=== PATIENT | male | born 1945 | race Caucasian/White ===

== ENCOUNTER 2018-08-19 09:29 | Inpatient (IN) | payer MEDICARE, BC ==
[2018-08-19 10:09] LABS: Basophils % (A) 1 %; Eosinophils # (A) 0.2 k/uL (0-0.7); Eosinophils % (A) 3 %; HCT 31.9 % (39.0-53.0); HGB 10.3 gm/dL (13.0-17.5); Lymphocytes # (A) 1.6 k/uL (1.0-4.8); Lymphocytes % (A) 21 %; MCH 31.4 pg (25.0-35.0); MCHC 32.1 g/dL (31.0-37.0); MCV 97.7 fL (80.0-100.0); Mean Platelet Volume 7.4; Monocytes # (A) 0.6 k/uL (0-1.0); Monocytes % (A) 7 %; Neutrophils # (A) 5.2 k/uL (1.3-7.7); Neutrophils % (A) 68 %; Platelet Count 263 k/uL (150-450); RBC 3.27 m/uL (4.30-5.90); RDW 14.8 % (11.5-15.5); WBC 7.7 k/uL (3.8-10.6)
[2018-08-19 10:28] LABS: ALT 32 U/L (21-72); AST 29 U/L (17-59); African American GFR (CKD) >90 (>60 ml/min/1.73 sqM); Albumin 3.5 g/dL (3.5-5.0); Alkaline Phosphatase 51 U/L (38-126); Anion Gap 5 mmol/L; Blood Urea Nitrogen 29 mg/dL (9-20); Calcium 9.2 mg/dL (8.4-10.2); Carbon Dioxide 26 mmol/L (22-30); Chloride 110 mmol/L (98-107); Creatine Kinase 216 U/L (55-170); Glucose 108 mg/dL (74-99); Magnesium 1.8 mg/dL (1.6-2.3); Potassium 4.1 mmol/L (3.5-5.1); Sodium 141 mmol/L (137-145); Total Bilirubin 0.6 mg/dL (0.2-1.3); Total Protein 5.5 g/dL (6.3-8.2)
[2018-08-19 10:38] LABS: INR 0.9 (<1.2); Partial Thromboplastin Time 23.8 sec (22.0-30.0); Prothrombin Time 9.9 sec (9.0-12.0)
--- NOTE | 2018-08-19 10:59 | ED ---
GI Bleed HPI - General Chief complaint: GI Bleed Stated complaint: Rectal Bleeding Time Seen by Provider: 08/19/18 09:36 Source: patient, RN notes reviewed Mode of arrival: ambulatory Limitations: no limitations - History of Present Illness Initial comments: (73-year-old male presents with complaints of GI bleeding had several episodes last evening more episodes this morning minimal abdominal pain. He states he has similar episodes several months ago was diagnosed with hemorrhoids. He states he has more blood and this morning was more burgundy colored. No fevers chills nausea vomiting sweats. MD complaint: gross hematochezia - Related Data Home Medications Medication Instructions Recorded Confirmed ALPRAZolam [Xanax] 1 mg PO HS 08/19/18 08/19/18 Ascorbic Acid [Vitamin C] 1,000 mg PO TID 08/19/18 08/19/18 Aspirin EC [Ecotrin Low Dose] 81 mg PO HS 08/19/18 08/19/18 Atorvastatin [Lipitor] 20 mg PO HS 08/19/18 08/19/18 Cyanocobalamin (Vitamin B-12) 1,000 mcg PO DAILY 08/19/18 08/19/18 [Vitamin B-12] Ferrous Sulfate [Feosol] 325 mg PO DAILY 08/19/18 08/19/18 Gabapentin [Neurontin] 100 mg PO HS 08/19/18 08/19/18 Lisinopril 40 mg PO HS 08/19/18 08/19/18 Melatonin 3 mg PO HS 08/19/18 08/19/18 Metoprolol Succinate (ER) [Toprol 50 mg PO DAILY 08/19/18 08/19/18 Xl] Omeprazole [PriLOSEC] 20 mg PO AC-BRKFST 08/19/18 08/19/18 Pioglitazone HCl [Actos] 15 mg PO DAILY 08/19/18 08/19/18 Tiotropium [place] [Spiriva 1 puff INHALATION RT-HS 08/19/18 08/19/18 Respimat] amLODIPine [Norvasc] 5 mg PO HS 08/19/18 08/19/18 glipiZIDE [Glucotrol] 2.5 mg PO AC-BID 08/19/18 08/19/18 metFORMIN HCL 1,000 mg PO BID 08/19/18 08/19/18 Allergies Allergy/AdvReac Type Severity Reaction Status Date / Time No Known Allergies Allergy Verified 08/19/18 09:52 Review of Systems ROS Statement: Those systems with pertinent positive or pertinent negative responses have been documented in the HPI. ROS Other: All systems not noted in ROS Statement are negative. Past Medical History Past Medical History: Diabetes Mellitus, Hypertension History of Any Multi-Drug Resistant Organisms: None Reported Past Surgical History: Coronary Bypass/CABG, Joint Replacement Additional Past Surgical History / Comment(s): left knee replacement Past Psychological History: No Psychological Hx Reported Smoking Status: Never smoker Past Alcohol Use History: None Reported Past Drug Use History: None Reported General Exam - General Exam Comments Initial Comments: This is a well-developed well-nourished awake alert oriented 3 male Limitations: no limitations General appearance: alert, in no apparent distress Head exam: Present: atraumatic, normocephalic, normal inspection Eye exam: Present: normal appearance, PERRL, EOMI. Absent: scleral icterus, conjunctival injection, periorbital swelling ENT exam: Present: normal exam, mucous membranes moist Neck exam: Present: normal inspection. Absent: tenderness, meningismus, lymphadenopathy Respiratory exam: Present: normal lung sounds bilaterally. Absent: respiratory distress, wheezes, rales, rhonchi, stridor Cardiovascular Exam: Present: regular rate, normal rhythm, normal heart sounds. Absent: systolic murmur, diastolic murmur, rubs, gallop, clicks GI/Abdominal exam: Present: soft, normal bowel sounds. Absent: distended, tenderness, guarding, rebound, rigid Rectal exam: Present: normal inspection, heme (+) stool Extremities exam: Present: normal inspection, full ROM, normal capillary refill. Absent: tenderness, pedal edema, joint swelling, calf tenderness Back exam: Present: normal inspection Neurological exam: Present: alert, oriented X3, CN II-XII intact Psychiatric exam: Present: normal affect, normal mood Skin exam: Present: warm, dry, intact, normal color. Absent: rash Course Vital Signs 08/19/18 08/19/18 08/19/18 09:31 09:50 10:34 Temperature 98.1 F Pulse Rate 86 61 79 Respiratory 16 18 18 Rate Blood Pressure 130/64 122/58 120/61 O2 Sat by Pulse 97 97 99 Oximetry Medical Decision Making - Medical Decision Making I did discuss the findings with the patient he will be admitted diagnoses GI bleed GI will be consulted I did discuss case with Dr. Crenshaw - Lab Data Result diagrams: 08/19/18 09:50 08/19/18 09:50 Lab Results 08/19/18 08/19/18 08/19/18 Range/Units 09:50 09:50 09:50 WBC 7.7 (3.8-10.6) k/uL RBC 3.27 L (4.30-5.90) m/uL Hgb 10.3 L (13.0-17.5) gm/dL Hct 31.9 L (39.0-53.0) % MCV 97.7 (80.0-100.0) fL MCH 31.4 (25.0-35.0) pg MCHC 32.1 (31.0-37.0) g/dL RDW 14.8 (11.5-15.5) % Plt Count 263 (150-450) k/uL Neutrophils % 68 % Lymphocytes % 21 % Monocytes % 7 % Eosinophils % 3 % Basophils % 1 % Neutrophils # 5.2 (1.3-7.7) k/uL Lymphocytes # 1.6 (1.0-4.8) k/uL Monocytes # 0.6 (0-1.0) k/uL Eosinophils # 0.2 (0-0.7) k/uL Basophils # 0.0 (0-0.2) k/uL PT 9.9 (9.0-12.0) sec INR 0.9 (<1.2) APTT 23.8 (22.0-30.0) sec Sodium 141 (137-145) mmol/L Potassium 4.1 (3.5-5.1) mmol/L Chloride 110 H (98-107) mmol/L Carbon Dioxide 26 (22-30) mmol/L Anion Gap 5 mmol/L BUN 29 H (9-20) mg/dL Creatinine 0.91 (0.66-1.25) mg/dL Est GFR (CKD-EPI)AfAm >90 (>60 ml/min/1.73 sqM) Est GFR (CKD-EPI)NonAf 84 (>60 ml/min/1.73 sqM) Glucose 108 H (74-99) mg/dL Calcium 9.2 (8.4-10.2) mg/dL Magnesium 1.8 (1.6-2.3) mg/dL Total Bilirubin 0.6 (0.2-1.3) mg/dL AST 29 (17-59) U/L ALT 32 (21-72) U/L Alkaline Phosphatase 51 (38-126) U/L Creatine Kinase 216 H (55-170) U/L Troponin I (0.000-0.034) ng/mL Total Protein 5.5 L (6.3-8.2) g/dL Albumin 3.5 (3.5-5.0) g/dL Stool Occult Blood (Negative) Blood Type Blood Type Confirm Blood Type Recheck Antibody Screen Spec Expiration Date 08/19/18 08/19/18 08/19/18 Range/Units 09:50 09:50 10:40 WBC (3.8-10.6) k/uL RBC (4.30-5.90) m/uL Hgb (13.0-17.5) gm/dL Hct (39.0-53.0) % MCV (80.0-100.0) fL MCH (25.0-35.0) pg MCHC (31.0-37.0) g/dL RDW (11.5-15.5) % Plt Count (150-450) k/uL Neutrophils % % Lymphocytes % % Monocytes % % Eosinophils % % Basophils % % Neutrophils # (1.3-7.7) k/uL Lymphocytes # (1.0-4.8) k/uL Monocytes # (0-1.0) k/uL Eosinophils # (0-0.7) k/uL Basophils # (0-0.2) k/uL PT (9.0-12.0) sec INR (<1.2) APTT (22.0-30.0) sec Sodium (137-145) mmol/L Potassium (3.5-5.1) mmol/L Chloride (98-107) mmol/L Carbon Dioxide (22-30) mmol/L Anion Gap mmol/L BUN (9-20) mg/dL Creatinine (0.66-1.25) mg/dL Est GFR (CKD-EPI)AfAm (>60 ml/min/1.73 sqM) Est GFR (CKD-EPI)NonAf (>60 ml/min/1.73 sqM) Glucose (74-99) mg/dL Calcium (8.4-10.2) mg/dL Magnesium (1.6-2.3) mg/dL Total Bilirubin (0.2-1.3) mg/dL AST (17-59) U/L ALT (21-72) U/L Alkaline Phosphatase (38-126) U/L Creatine Kinase (55-170) U/L Troponin I <0.012 (0.000-0.034) ng/mL Total Protein (6.3-8.2) g/dL Albumin (3.5-5.0) g/dL Stool Occult Blood Positive (Negative) Blood Type A Negative Blood Type Confirm Blood Type Recheck CABO Indicated Antibody Screen NEGATIVE Spec Expiration Date 08/22/2018 - 234908/19/18 Range/Units 11:20 WBC (3.8-10.6) k/uL RBC (4.30-5.90) m/uL Hgb (13.0-17.5) gm/dL Hct (39.0-53.0) % MCV (80.0-100.0) fL MCH (25.0-35.0) pg MCHC (31.0-37.0) g/dL RDW (11.5-15.5) % Plt Count (150-450) k/uL Neutrophils % % Lymphocytes % % Monocytes % % Eosinophils % % Basophils % % Neutrophils # (1.3-7.7) k/uL Lymphocytes # (1.0-4.8) k/uL Monocytes # (0-1.0) k/uL Eosinophils # (0-0.7) k/uL Basophils # (0-0.2) k/uL PT (9.0-12.0) sec INR (<1.2) APTT (22.0-30.0) sec Sodium (137-145) mmol/L Potassium (3.5-5.1) mmol/L Chloride (98-107) mmol/L Carbon Dioxide (22-30) mmol/L Anion Gap mmol/L BUN (9-20) mg/dL Creatinine (0.66-1.25) mg/dL Est GFR (CKD-EPI)AfAm (>60 ml/min/1.73 sqM) Est GFR (CKD-EPI)NonAf (>60 ml/min/1.73 sqM) Glucose (74-99) mg/dL Calcium (8.4-10.2) mg/dL Magnesium (1.6-2.3) mg/dL Total Bilirubin (0.2-1.3) mg/dL AST (17-59) U/L ALT (21-72) U/L Alkaline Phosphatase (38-126) U/L Creatine Kinase (55-170) U/L Troponin I (0.000-0.034) ng/mL Total Protein (6.3-8.2) g/dL Albumin (3.5-5.0) g/dL Stool Occult Blood (Negative) Blood Type Blood Type Confirm A Negative Blood Type Recheck Antibody Screen Spec Expiration Date - EKG Data -: EKG Interpreted by Me EKG shows normal: sinus rhythm (Sinus rhythm borderline first-degree block incomplete left low back block nonspecific ST configuration prolonged QT ventricular rate 82 QRS 106 QT since QTC 408/476) - Radiology Data Radiology results: report reviewed (Review the imaging shows no definite acute findings or some question was evidence of ileus versus enteritis), image reviewed Disposition Clinical Impression: Hematochezia, GI bleed, Anemia Disposition: ADMITTED IP TO THIS [facility] Condition: Fair Referrals: None,Stated [Primary Care Provider] - 1-2 days
--- NOTE | 2018-08-19 12:22 | XR ---
EXAMINATION TYPE: XR abdomen 2V DATE OF EXAM: 08/19/2018 CLINICAL DATA: 73-year-old male rectal bleeding, pain, PHH COMPARISON: None FINDINGS: Mildly enlarged. Median sternotomy wires. Lung bases clear. No evidence for free intraperitoneal air. Degenerated dextro convex scoliosis lumbar spine. Scattered air throughout central small bowel loops. One loop is borderline to mildly distended at 3.1 cm in the left upper quadrant. Mild overall stool burden. No differential air-fluid levels. Vascular calcifications in the pelvis. IMPRESSION: 1. No evidence of bowel obstruction or free intraperitoneal air. 2. Borderline to mildly distended small bowel loop on the left side of the abdomen could represent a regional ileus or enteritis.
[2018-08-19] MEDS ORDERED: ONDANSETRON 4 MG/2 ML VIAL IVP PRN (13:18)
[2018-08-19] MEDS ORDERED: NALOXONE 0.4 MG/ML 1 ML VIAL IV PRN (13:18)
[2018-08-19 13:24] LABS: Glucose,Whole Blood 94 mg/dL (75-99)
[2018-08-19] MEDS: SODIUM CHLORIDE 0.9% 1,000 ML IV SCH (13:46)
[2018-08-19 16:08] LABS: HCT 28.1 % (39.0-53.0); HGB 8.9 gm/dL (13.0-17.5); MCH 31.9 pg (25.0-35.0); MCHC 31.7 g/dL (31.0-37.0); MCV 100.7 fL (80.0-100.0); Macrocytosis Slight; Platelet Count 233 k/uL (150-450); RDW 14.7 % (11.5-15.5); WBC 6.6 k/uL (3.8-10.6)
[2018-08-19] MEDS ORDERED: HYDROcodone/APAP 5-325MG 1 EACH TAB PO PRN (17:28)
[2018-08-19] MEDS ORDERED: ACETAMINOPHEN TAB 325 MG TAB PO PRN (17:28)
--- NOTE | 2018-08-19 17:49 | P.HPIM ---
History of Present Illness H&P Date: 08/19/18 Chief Complaint: GI bleed 73-year-old male with PMH of diabetes mellitus, hypertension, coronary artery disease status post AV valve replacement CABG presents to the ED for he matochezia. Patient reports about 6 episode of bright red blood per rectum since yesterday. Symptoms persisted, prompting the patient to come to the ED. Patient reports a colonoscopy a few years back that was within normal limits. He denies any headache, lower extremity edema, nausea, vomiting, chest pain, shortness of breath, palpitations, changes in urination, dizziness, numbness/weakness/tingling of the extremities. He denies any abdominal pain. In the ED, vital signs are stable. CBC showed a hemoglobin of 10.3 which trended down to 8.9. CMP showed a BUN of 29. Patient is admitted for lower GI bleed, GI is consulted. Review of Systems Pertinent positives and negatives as discussed in HPI, a complete review of systems was performed and all other systems are negative. Past Medical History Past Medical History: Diabetes Mellitus, GERD/Reflux, Hyperlipidemia, Hypertension, Pneumonia Additional Past Medical History / Comment(s): Bleeding hemorrhoids recently, pt taken off coumadin 6 weeks ago and started on aspirin, NIDDM type II, bilateral leg cramps at HS, anemia, schrapnel in his back. History of Any Multi-Drug Resistant Organisms: None Reported Past Surgical History: Coronary Bypass/CABG, Heart Catheterization, Joint Replacement Additional Past Surgical History / Comment(s): 2012 CABG with aortic valve replaced, left total knee replacement, colonoscopy Past Anesthesia/Blood Transfusion Reactions: No Reported Reaction Smoking Status: Former smoker - Past Family History Father Family Medical History: Myocardial Infarction (PR) Additional Family Medical History / Comment(s): Father of a massive PR at the age of 46yrs. Mother Family Medical History: Cancer Additional Family Medical History / Comment(s): Mother had lung cancer. She was a smoker. She at the age of 90yrs. Medications and Allergies Home Medications Medication Instructions Recorded Confirmed Type ALPRAZolam [Xanax] 1 mg PO HS 08/19/18 08/19/18 History Ascorbic Acid [Vitamin C] 1,000 mg PO TID 08/19/18 08/19/18 History Aspirin EC [Ecotrin Low Dose] 81 mg PO HS 08/19/18 08/19/18 History Atorvastatin [Lipitor] 20 mg PO HS 08/19/18 08/19/18 History Cyanocobalamin (Vitamin B-12) 1,000 mcg PO DAILY 08/19/18 08/19/18 History [Vitamin B-12] Ferrous Sulfate [Feosol] 325 mg PO DAILY 08/19/18 08/19/18 History Gabapentin [Neurontin] 100 mg PO HS 08/19/18 08/19/18 History Lisinopril 40 mg PO HS 08/19/18 08/19/18 History Melatonin 3 mg PO HS 08/19/18 08/19/18 History Metoprolol Succinate (ER) [Toprol 50 mg PO DAILY 08/19/18 08/19/18 History Xl] Omeprazole [PriLOSEC] 20 mg PO AC-BRKFST 08/19/18 08/19/18 History Pioglitazone HCl [Actos] 15 mg PO DAILY 08/19/18 08/19/18 History Tiotropium [place] [Spiriva 1 puff INHALATION RT-HS 08/19/18 08/19/18 History Respimat] amLODIPine [Norvasc] 5 mg PO HS 08/19/18 08/19/18 History glipiZIDE [Glucotrol] 2.5 mg PO AC-BID 08/19/18 08/19/18 History metFORMIN HCL 1,000 mg PO BID 08/19/18 08/19/18 History Allergies Allergy/AdvReac Type Severity Reaction Status Date / Time No Known Allergies Allergy Verified 08/19/18 09:52 Physical Exam Vitals: Vital Signs Temp Pulse Pulse Resp BP BP Pulse Ox 08/19/18 16:52 96.7 F L 70 16 151/69 98 08/19/18 14:50 98.2 F 65 16 114/66 98 08/19/18 13:25 66 16 116/56 95 08/19/18 10:34 79 18 120/61 99 08/19/18 09:50 61 18 122/58 97 08/19/18 09:31 98.1 F 86 16 130/64 97 Intake and Output 08/19/18 08/19/18 08/19/18 06:59 14:59 22:59 Other: # Bowel Movements 1 Weight 77.111 kg General: [non toxic], [no distress], [appears at stated age] Derm: [warm], [dry] Head: [atraumatic], [normocephalic], [symmetric] Eyes: [EOMI], [no lid lag], [anicteric sclera] Mouth: [no lip lesion], [mucus membranes moist] Cardiovascular: [S1S2 reg], [no murmur], [positive posterior tibial pulse bilateral], Lungs: [CTA bilateral], [no rhonchi, no rales] , [no accessory muscle use] Abdominal: [soft], [ nontender to palpation], [no guarding], [no appreciable organomegaly] Ext: [no gross muscle atrophy], [no edema], [no contractures] Neuro: [ CN II-XI grossly intact], [no focal neuro deficits] Psych: [Alert], [oriented], [appropriate affect] Results CBC & Chem 7: 08/19/18 15:56 08/19/18 09:50 Labs: Abnormal Lab Results - Last 24 Hours (Table) 08/19/18 08/19/18 08/19/18 Range/Units 09:50 09:50 15:56 RBC 3.27 L 2.80 L (4.30-5.90) m/uL Hgb 10.3 L 8.9 L (13.0-17.5) gm/dL Hct 31.9 L 28.1 L (39.0-53.0) % MCV 100.7 H (80.0-100.0) fL Chloride 110 H (98-107) mmol/L BUN 29 H (9-20) mg/dL Glucose 108 H (74-99) mg/dL Creatine Kinase 216 H (55-170) U/L Total Protein 5.5 L (6.3-8.2) g/dL Thrombosis Risk Factor Assmnt - Choose All That Apply Any of the Below Risk Factors Present?: Yes Other Risk Factors: Yes Each Risk Factor Represents 2 Points: Age 61-74 years Other congenital or acquired thrombophilia - If yes, enter type in comment: No Thrombosis Risk Factor Assessment Total Risk Factor Score: 2 Thrombosis Risk Factor Assessment Level: Low Risk Assessment and Plan Assessment: Assessment and Plan Lower GI bleed likely secondary to hemorrhoids or diverticular bleed given presentation Diabetes mellitus Hypertension CAD post CABG Hemoglobin from 10.3-8.9. Stool for occult blood positive. Plans: Protonix 40 g IV twice a day. Continue normal saline 80 mL per hour. Zofran as needed for nausea and vomiting. We'll consult GI for possible colonoscopy. Follow CBC in 9 PM. [id number] glucose 94. Plans: Insulin sliding scale. Regular Accu-Cheks. Hypoglycemic precautions. BP 151/69. Plans: Continue amlodipine, lisinopril and metoprolol. Monitor vitals, adjust medications as necessary. Stable. Plans: Continue Lipitor. Hold aspirin until okay with GI. DVT prophylaxis: [SCD boots] Discussed with: [Patient] Anticipated discharge: [1-2 days] Anticipated discharge place: [Home] A total of [45] minutes was spent on the care of this complex patient more than 50% of the time was spent in counseling and care coordination.
[2018-08-19 18:23] LABS: Glucose,Whole Blood 165 mg/dL (75-99)
[2018-08-19] MEDS: INSULIN ASPART (NovoLOG) 100 UNIT/ML VIAL SQ SCH ×2 (18:30→21:27)
[2018-08-19] MEDS: amLODIPine 5 MG TAB PO SCH (20:16)
[2018-08-19 20:58] LABS: Glucose,Whole Blood 120 mg/dL (75-99)
[2018-08-19] MEDS: LISINOPRIL 20 MG TAB PO SCH (21:27)
[2018-08-19] MEDS: ATORVASTATIN 20 MG TAB PO SCH (21:27)
[2018-08-19] MEDS: MELATONIN 3 MG TABLET PO SCH (21:27)
[2018-08-19] MEDS: GABAPENTIN 100 MG CAP PO SCH (21:27)
[2018-08-19] MEDS: ALPRAZolam 1 MG TAB PO SCH (21:27)
[2018-08-19] MEDS: PANTOPRAZOLE 40 MG/10 ML VIAL IV SCH (21:28)
[2018-08-19 22:10] LABS: HCT 29.8 % (39.0-53.0); HGB 9.5 gm/dL (13.0-17.5); Hypochromasia Slight; MCH 31.9 pg (25.0-35.0); MCHC 31.8 g/dL (31.0-37.0); MCV 100.3 fL (80.0-100.0); Macrocytosis Slight; Mean Platelet Volume 7.7; Platelet Count 261 k/uL (150-450); RBC 2.97 m/uL (4.30-5.90); RDW 14.5 % (11.5-15.5)
[2018-08-20] MEDS: SODIUM CHLORIDE 0.9% 1,000 ML IV SCH ×2 (02:35→16:42)
[2018-08-20 07:07] LABS: Glucose,Whole Blood 118 mg/dL (75-99)
[2018-08-20] MEDS: INSULIN ASPART (NovoLOG) 100 UNIT/ML VIAL SQ SCH ×4 (08:03→22:10)
[2018-08-20] MEDS: PANTOPRAZOLE 40 MG/10 ML VIAL IV SCH ×2 (08:38→19:47)
[2018-08-20] MEDS: FERROUS SULFATE 325 MG TAB PO SCH (08:38)
[2018-08-20] MEDS: METOPROLOL SUCCINATE (ER) 50 MG TAB.ER.24H PO SCH (08:38)
[2018-08-20 09:15] LABS: HCT 27.4 % (39.0-53.0); HGB 8.8 gm/dL (13.0-17.5); Hypochromasia Slight; MCH 32.5 pg (25.0-35.0); MCHC 32.2 g/dL (31.0-37.0); MCV 100.9 fL (80.0-100.0); Macrocytosis Slight; Mean Platelet Volume 7.2; Platelet Count 257 k/uL (150-450); RBC 2.71 m/uL (4.30-5.90); RDW 14.6 % (11.5-15.5); WBC 6.6 k/uL (3.8-10.6)
--- NOTE | 2018-08-20 10:10 | P.PN ---
Subjective Progress Note Date: 08/20/18 Principal diagnosis: lower GI bleed Patient was seen and examined. No acute events overnight. Patient reports overnight bowel movements with blood. He denies any chest pain, shortness of breath or palpitations. No dizziness. No nausea or vomiting. No abdominal pain. States that he is frustrated, wanting to sign AMA, frustrated that GI has not seen him yet. Objective - Vital Signs Vital signs: Vital Signs Temp 97.9 F 08/20/18 06:34 Pulse 68 08/20/18 06:34 Resp 16 08/20/18 06:34 BP 110/61 08/20/18 06:34 Pulse Ox 98 08/20/18 06:34 Intake & Output 08/19/18 08/20/18 08/20/18 18:59 06:59 18:59 Intake Total 600 590 Balance 600 590 Weight 77.111 kg Intake: Oral 600 590 Other: # Voids 0 # Bowel Movements 1 0 # Emeses 0 - Exam General: [non toxic], [no distress], [appears at stated age] Derm: [warm], [dry] Head: [atraumatic], [normocephalic], [symmetric] Eyes: [EOMI], [no lid lag], [anicteric sclera] Mouth: [no lip lesion], [mucus membranes moist] Cardiovascular: [S1S2 reg], [no murmur], [positive posterior tibial pulse bilateral], Lungs: [CTA bilateral], [no rhonchi, no rales] , [no accessory muscle use] Abdominal: [soft], [ nontender to palpation], [no guarding], [no appreciable organomegaly] Ext: [no gross muscle atrophy], [no edema], [no contractures] Neuro: [no focal neuro deficits] Psych: [Alert], [oriented], [appropriate affect] - Labs CBC & Chem 7: 08/20/18 08:32 08/19/18 09:50 Labs: Abnormal Lab Results - Last 24 Hours (Table) 08/19/18 08/19/18 08/19/18 Range/Units 09:50 09:50 15:56 RBC 3.27 L 2.80 L (4.30-5.90) m/uL Hgb 10.3 L 8.9 L (13.0-17.5) gm/dL Hct 31.9 L 28.1 L (39.0-53.0) % MCV 100.7 H (80.0-100.0) fL Chloride 110 H (98-107) mmol/L BUN 29 H (9-20) mg/dL Glucose 108 H (74-99) mg/dL POC Glucose (mg/dL) (75-99) mg/dL Creatine Kinase 216 H (55-170) U/L Total Protein 5.5 L (6.3-8.2) g/dL 08/19/18 08/19/18 08/19/18 Range/Units 18:20 20:52 22:00 RBC 2.97 L (4.30-5.90) m/uL Hgb 9.5 L (13.0-17.5) gm/dL Hct 29.8 L (39.0-53.0) % MCV 100.3 H (80.0-100.0) fL Chloride (98-107) mmol/L BUN (9-20) mg/dL Glucose (74-99) mg/dL POC Glucose (mg/dL) 165 H 120 H (75-99) mg/dL Creatine Kinase (55-170) U/L Total Protein (6.3-8.2) g/dL 08/20/18 08/20/18 Range/Units 06:58 08:32 RBC 2.71 L (4.30-5.90) m/uL Hgb 8.8 L (13.0-17.5) gm/dL Hct 27.4 L (39.0-53.0) % MCV 100.9 H (80.0-100.0) fL Chloride (98-107) mmol/L BUN (9-20) mg/dL Glucose (74-99) mg/dL POC Glucose (mg/dL) 118 H (75-99) mg/dL Creatine Kinase (55-170) U/L Total Protein (6.3-8.2) g/dL Assessment and Plan Assessment: Assessment and Plan Lower GI bleed likely secondary to hemorrhoids or diverticular bleed given presentation Diabetes mellitus Hypertension CAD post CABG Hemoglobin from 10.3-8.9-9.5-8.8. Stool for occult blood positive. Plans: Protonix 40 g IV twice a day. Continue normal saline 80 mL per hour. Zofran as needed for nausea and vomiting. We'll consult GI for possible colonoscopy. [id number] glucose 118. Plans: Insulin sliding scale. Regular Accu-Cheks. Hypoglycemic precautions. BP 110/61. Plans: Continue amlodipine, lisinopril and metoprolol. Monitor vitals, adjust medications as necessary. Stable. Plans: Continue Lipitor. Hold aspirin until okay with GI. Pending GI evaluation. Monitor H&H. Risk of AMA.
--- NOTE | 2018-08-20 11:36 | P.CONS ---
History of Present Illness - Reason for Consult Consult date: 08/20/18 Hematochezia Requesting physician: Shiv Crenshaw - Chief Complaint Hematochezia - History of Present Illness 73-year-old gentleman resident [place] with a history of colonic diverticulosis, diabetes mellitus, hypertension, CAD AVR, CABG presents with painless gross bloody bowel movements 2 days. Denies hematemesis melena fever chills or weight loss. Last screening colonoscopy 3 years ago to his memory was unremarkable. Previous colonoscopies in the past have mention colonic diverticular disease. 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 Flexible sigmoidoscopy was performed in the GI office 2 months ago and was told his bleeding was from a hemorrhoid with recommendations for colonoscopy in 3 years. Denies NSAIDs excessive aspirin or alcohol. Admission hemoglobin 10.3 presently 8.8. MCV 97. Platelet 263. INR 0.9. FOBT positive. BUN 29. Creatinine 0.9. Abdominal x-ray no evidence of bowel obstruction or free air. He is still passing dark burgundy movements with clots. No history of peptic ulcer disease. No recent EGD. Review of Systems Constitutional: Denies fever, chills, sweats, weight gain, or loss. HEENT: Negative for migraines, blurred vision or loss, earaches, drainage, tinnitus, oral mucosal lesions, dysphagia, or odynophagia. Cardiac: Negative for chest pain, arrhythmias, or palpitation. Respiratory: Negative for shortness of breath, hemoptysis, cough, or sputum production. Gastrointestinal: See HPI for pertinent findings. Genitourinary: Negative for hematuria, urgency, frequency, polyuria, dysuria, or penile discharge. Musculoskeletal: Negative for muscle aches, swelling, arthritis, and arthralgias. Neurologic: Negative for stroke or TIA. Endocrine: Negative for thyroid problems. Skin: Negative for rash or itching. Psychiatric: Negative history for depression and anxiety Past Medical History Past Medical History: Diabetes Mellitus, GERD/Reflux, Hyperlipidemia, Hypertension, Pneumonia Additional Past Medical History / Comment(s): Bleeding hemorrhoids recently, pt taken off coumadin 6 weeks ago and started on aspirin, NIDDM type II, bilateral leg cramps at HS, anemia, schrapnel in his back. History of Any Multi-Drug Resistant Organisms: None Reported Past Surgical History: Coronary Bypass/CABG, Heart Catheterization, Joint Replacement Additional Past Surgical History / Comment(s): 2012 CABG with aortic valve replaced, left total knee replacement, colonoscopy Past Anesthesia/Blood Transfusion Reactions: No Reported Reaction Smoking Status: Former smoker - Past Family History Father Family Medical History: Myocardial Infarction ([place]) Additional Family Medical History / Comment(s): Father of a massive [place] at the age of 46yrs. Mother Family Medical History: Cancer Additional Family Medical History / Comment(s): Mother had lung cancer. She was a smoker. She at the age of 90yrs. Medications and Allergies Home Medications Medication Instructions Recorded Confirmed Type ALPRAZolam [Xanax] 1 mg PO HS 08/19/18 08/19/18 History Ascorbic Acid [Vitamin C] 1,000 mg PO TID 08/19/18 08/19/18 History Aspirin EC [Ecotrin Low Dose] 81 mg PO HS 08/19/18 08/19/18 History Atorvastatin [Lipitor] 20 mg PO HS 08/19/18 08/19/18 History Cyanocobalamin (Vitamin B-12) 1,000 mcg PO DAILY 08/19/18 08/19/18 History [Vitamin B-12] Ferrous Sulfate [Feosol] 325 mg PO DAILY 08/19/18 08/19/18 History Gabapentin [Neurontin] 100 mg PO HS 08/19/18 08/19/18 History Lisinopril 40 mg PO HS 08/19/18 08/19/18 History Melatonin 3 mg PO HS 08/19/18 08/19/18 History Metoprolol Succinate (ER) [Toprol 50 mg PO DAILY 08/19/18 08/19/18 History Xl] Omeprazole [PriLOSEC] 20 mg PO AC-BRKFST 08/19/18 08/19/18 History Pioglitazone HCl [Actos] 15 mg PO DAILY 08/19/18 08/19/18 History Tiotropium [place] [Spiriva 1 puff INHALATION RT-HS 08/19/18 08/19/18 History Respimat] amLODIPine [Norvasc] 5 mg PO HS 08/19/18 08/19/18 History glipiZIDE [Glucotrol] 2.5 mg PO AC-BID 08/19/18 08/19/18 History metFORMIN HCL 1,000 mg PO BID 08/19/18 08/19/18 History Allergies Allergy/AdvReac Type Severity Reaction Status Date / Time No Known Allergies Allergy Verified 08/19/18 09:52 Physical Exam Vitals: Vital Signs Temp Pulse Pulse Resp BP BP Pulse Ox 08/20/18 06:34 97.9 F 68 16 110/61 98 08/20/18 00:00 18 08/19/18 21:00 98.0 F 75 18 132/68 96 08/19/18 16:52 96.7 F L 70 16 151/69 98 08/19/18 14:50 98.2 F 65 16 114/66 98 08/19/18 13:25 66 16 116/56 95 Intake and Output 08/19/18 08/20/18 08/20/18 22:59 06:59 14:59 Intake Total 400 200 590 Balance 400 200 590 Intake: Oral 400 200 590 Other: # Voids 2 0 # Bowel Movements 2 0 1 # Emeses 0 General appearance: The patient is alert, oriented, in no acute distress. HET: Head is normocephalic and atraumatic. Pupils are equal and reactive. Oropharynx is clear without lesions. Neck: Supple without lymphadenopathy. Trachea midline. Heart: S1 S2. Regular rate and rhythm. Lungs: No crackles or wheezes are heard. Abdomen: Soft, nontender, nondistended with bowel sounds. No peritoneal signs. No palpable organomegaly or masses. Extremities: Normal skin color and turgor. No cyanosis, rash, ulceration, clubbing, or edema. Radial and pedal pulses are 2/4 bilaterally. Neurological: No focal deficits. Strength and sensation are grossly intact. Results CBC & Chem 7: 08/20/18 08:32 08/19/18 09:50 Labs: Abnormal Lab Results - Last 24 Hours (Table) 08/19/18 08/19/18 08/19/18 Range/Units 15:56 18:20 20:52 RBC 2.80 L (4.30-5.90) m/uL Hgb 8.9 L (13.0-17.5) gm/dL Hct 28.1 L (39.0-53.0) % MCV 100.7 H (80.0-100.0) fL POC Glucose (mg/dL) 165 H 120 H (75-99) mg/dL 08/19/18 08/20/18 08/20/18 Range/Units 22:00 06:58 08:32 RBC 2.97 L 2.71 L (4.30-5.90) m/uL Hgb 9.5 L 8.8 L (13.0-17.5) gm/dL Hct 29.8 L 27.4 L (39.0-53.0) % MCV 100.3 H 100.9 H (80.0-100.0) fL POC Glucose (mg/dL) 118 H (75-99) mg/dL Abdominal x-ray: report reviewed (Dr. Liu) Assessment and Plan (1) GI bleed Narrative/Plan: 73-year-old male admitted with painless gross hematochezia 2 days with a history of colonic diverticulosis. Suspect acute colonic diverticular bleed however underlying small bowel pathology possible upper GI pathology cannot be entirely excluded with mild elevation of BUN. Recent flexible sigmoidoscopy 2 months ago in [place] reported hemorrhoids and previous colonoscopies in the past reported colonic diverticulosis. Current Visit: Yes Status: Acute Code(s): K92.2 - GASTROINTESTINAL HEMORRHAGE, UNSPECIFIED SNOMED Code(s): 63966678 (2) Acute blood loss anemia Current Visit: Yes Status: Acute Code(s): D62 - ACUTE POSTHEMORRHAGIC ANEMIA SNOMED Code(s): 434583686 (3) Hematochezia Current Visit: Yes Status: Acute Code(s): K92.1 - MELENA SNOMED Code(s): 291174240 Plan: 1. Nothing by mouth. CBC every 6 hours. Protonix 40 mg daily. We'll proceed with EGD evaluation this afternoon to confidently rule out peptic ulcer disease. Patient may require further investigative studies if bleeding continues. Inpatient colonoscopy not planned at this time. If rectal bleeding does not improve and accelerates recommend a tagged RBC scan and surgical consult. 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 The patient has indicated understanding and acceptance of the risks and procedures discussed. Thank you for this kind referral and the opportunity to participate in the care of your patient. This consultation was discussed with Dr. Liu. The impression and plan of care have been directed as dictated.
[2018-08-20 12:10] LABS: Glucose,Whole Blood 241 mg/dL (75-99)
[2018-08-20 15:04] LABS: Basophils % (A) 0 %; Eosinophils # (A) 0.1 k/uL (0-0.7); Eosinophils % (A) 2 %; HCT 24.3 % (39.0-53.0); HGB 7.6 gm/dL (13.0-17.5); Lymphocytes # (A) 1.2 k/uL (1.0-4.8); Lymphocytes % (A) 26 %; MCHC 31.3 g/dL (31.0-37.0); Mean Platelet Volume 7.9; Monocytes # (A) 0.3 k/uL (0-1.0); Monocytes % (A) 8 %; Neutrophils # (A) 2.8 k/uL (1.3-7.7); Neutrophils % (A) 62 %; Platelet Count 205 k/uL (150-450); RBC 2.45 m/uL (4.30-5.90); RDW 14.8 % (11.5-15.5); WBC 4.5 k/uL (3.8-10.6)
[2018-08-20] MEDS ORDERED: IV FLUID CONTINUATION 1,000 ML IV ONE (15:50)
[2018-08-20] MEDS ORDERED: LIDOCAINE 1% INJ 10MG/ML (20 ML MDV) ONE (16:04)
[2018-08-20] MEDS ORDERED: PROPOFOL 10 MG/ML 20 ML VIAL IV ONE (16:04)
--- NOTE | 2018-08-20 16:39 | P.PCN ---
Date of Procedure: 08/20/18 Procedure(s) Performed: Procedure: Esophagogastroduodenoscopy and biopsy. Preoperative diagnosis: GI bleeding and anemia. Postoperative diagnosis: 1. Small sliding hiatal hernia with no obvious esophagitis or complicated reflux disease. 2. Mild antral gastritis but no ulcers, gastric outlet obstruction or bleeding. 3. Biopsies obtained from the antrum to rule out H. pylori infection. 4. No pyloric channel ulcer duodenal bulb or other abnormalities or bleeding. Preparation and sedation: Was provided by anesthesia. Brief clinical history: The patient is a 73-year-old male resident of [place] with a history of colonic diverticulosis, diabetes mellitus, hypertension, CAD AVR, CABG who presents with painless gross bloody bowel movements 2 days. Denies hematemesis, melena, fever, chills or weight loss. Last screening colonoscopy 3 years ago was unremarkable. Previous colonoscopies in the past have mention colonic diverticular disease. 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 Flexible sigmoidoscopy was performed in the GI office 2 months ago and was told his bleeding was from a hemorrhoid with recommendations for colonoscopy in 3 years. Denies NSAIDs excessive aspirin or alcohol. Admission hemoglobin 10.3 presently 8.8. MCV 97. Platelet 263. INR 0.9. FOBT positive. BUN 29. Creatinine 0.9. Abdominal x-ray no evidence of bowel obstruction or free air. He is still passing dark burgundy movements with clots. No history of peptic ulcer disease. No recent EGD. Other details are summarized in the history and physical and dictated consultations and progress notes. This evaluation is to rule out an upper GI source of bleeding. Procedure: With the patient on his left lateral decubitus position and after informed consent and adequate sedation, I passed the Olympus-GIF H190 video upper endoscope through the cricopharyngeus down the esophagus. GE junction was around 42-43 cm from the incisors and there was a small sliding hiatal hernia but no obvious esophagitis or complicated reflux disease. The endoscope was then passed into the stomach which was insufflated with air and inspected in detail including the retroflex view in the cardia. There was some mottling and erythema in the antrum and minimal friability but no ulcers or bleeding. All secretions in the stomach where bilious in color. Pyloric channel, duodenal bulb, post bulbar area and descending duodenum appeared within normal limits. I obtained biopsies from the antrum then the endoscope was withdrawn. The patient tolerated the procedure well. Plan: The patient was reassured. Will allow diet and monitor his bleeding and make further plans based on his course.
[2018-08-20 17:20] LABS: Glucose,Whole Blood 155 mg/dL (75-99)
[2018-08-20] MEDS: amLODIPine 5 MG TAB PO SCH (19:46)
[2018-08-20 20:48] LABS: Glucose,Whole Blood 206 mg/dL (75-99)
[2018-08-20 21:17] LABS: Basophils % (A) 1 %; Eosinophils # (A) 0.2 k/uL (0-0.7); Eosinophils % (A) 2 %; HCT 25.9 % (39.0-53.0); HGB 8.2 gm/dL (13.0-17.5); Hypochromasia Slight; Lymphocytes % (A) 33 %; MCH 31.9 pg (25.0-35.0); MCHC 31.6 g/dL (31.0-37.0); MCV 100.7 fL (80.0-100.0); Macrocytosis Slight; Mean Platelet Volume 7.2; Monocytes # (A) 0.6 k/uL (0-1.0); Monocytes % (A) 9 %; Neutrophils # (A) 3.2 k/uL (1.3-7.7); Neutrophils % (A) 53 %; Platelet Count 237 k/uL (150-450); RBC 2.57 m/uL (4.30-5.90); RDW 14.7 % (11.5-15.5); WBC 6.1 k/uL (3.8-10.6)
[2018-08-20] MEDS: LISINOPRIL 20 MG TAB PO SCH (21:58)
[2018-08-20] MEDS: MELATONIN 3 MG TABLET PO SCH (21:59)
[2018-08-20] MEDS: ATORVASTATIN 20 MG TAB PO SCH (21:59)
[2018-08-20] MEDS: ALPRAZolam 1 MG TAB PO SCH (21:59)
[2018-08-20] MEDS: GABAPENTIN 100 MG CAP PO SCH (21:59)
[2018-08-21] MEDS: SODIUM CHLORIDE 0.9% 1,000 ML IV SCH ×2 (04:24→17:07)
[2018-08-21 07:14] LABS: Glucose,Whole Blood 128 mg/dL (75-99)
[2018-08-21] MEDS: FERROUS SULFATE 325 MG TAB PO SCH (07:34)
[2018-08-21] MEDS: METOPROLOL SUCCINATE (ER) 50 MG TAB.ER.24H PO SCH (07:34)
[2018-08-21] MEDS: PANTOPRAZOLE 40 MG/10 ML VIAL IV SCH ×2 (07:34→20:26)
[2018-08-21] MEDS: INSULIN ASPART (NovoLOG) 100 UNIT/ML VIAL SQ SCH ×4 (07:35→20:49)
[2018-08-21 08:03] LABS: Basophils % (A) 0 %; Eosinophils # (A) 0.2 k/uL (0-0.7); Eosinophils % (A) 3 %; HCT 22.1 % (39.0-53.0); Lymphocytes # (A) 1.5 k/uL (1.0-4.8); Lymphocytes % (A) 27 %; MCH 31.5 pg (25.0-35.0); MCHC 31.7 g/dL (31.0-37.0); MCV 99.3 fL (80.0-100.0); Mean Platelet Volume 7.2; Monocytes # (A) 0.4 k/uL (0-1.0); Monocytes % (A) 7 %; Neutrophils # (A) 3.3 k/uL (1.3-7.7); Neutrophils % (A) 60 %; Platelet Count 218 k/uL (150-450); RBC 2.22 m/uL (4.30-5.90); RDW 14.3 % (11.5-15.5); WBC 5.4 k/uL (3.8-10.6)
--- NOTE | 2018-08-21 10:43 | P.PN ---
Subjective Progress Note Date: 08/21/18 Principal diagnosis: bright red blood per rectum patient was seen and examined. No acute events overnight. EGD performed yesterday with no source of bleeding identified. Patient with bowel movement this morning that was maroon colored. Hemoglobin is 7, will transfuse 1 unit PRBC. Complains of some dizziness with standing. Denies any chest pain or palpitations. Objective - Vital Signs Vital signs: Vital Signs Temp 97.7 F 08/21/18 09:00 Pulse 78 08/21/18 09:00 Resp 16 08/21/18 09:00 BP 118/54 08/21/18 09:00 Pulse Ox 98 08/21/18 09:00 Intake & Output 08/20/18 08/21/18 08/21/18 18:59 06:59 18:59 Intake Total 1280 900 Balance 1280 900 Intake: IV 100 Oral 1180 900 Other: # Voids 1 1 # Bowel Movements 1 1 - Exam General: [non toxic], [no distress], [appears at stated age] Derm: [warm], [dry] Head: [atraumatic], [normocephalic], [symmetric] Eyes: [EOMI], [no lid lag], [anicteric sclera] Mouth: [no lip lesion], [mucus membranes moist] Cardiovascular: [S1S2 reg], [no murmur], [positive DP pulse bilateral], Lungs: [CTA bilateral], [no rhonchi, no rales] , [no accessory muscle use] Abdominal: [soft], [ nontender to palpation], [no guarding], [no appreciable organomegaly] Ext: [no gross muscle atrophy], [no edema], [no contractures] Neuro: [no focal neuro deficits] Psych: [Alert], [oriented], [appropriate affect] - Labs CBC & Chem 7: 08/21/18 07:41 08/19/18 09:50 Labs: Abnormal Lab Results - Last 24 Hours (Table) 08/19/18 08/20/18 08/20/18 Range/Units 09:50 11:57 14:47 RBC 2.45 L (4.30-5.90) m/uL Hgb 7.6 L (13.0-17.5) gm/dL Hct 24.3 L (39.0-53.0) % MCV (80.0-100.0) fL POC Glucose (mg/dL) 241 H (75-99) mg/dL Crossmatch See Detail 08/20/18 08/20/18 08/20/18 Range/Units 16:57 20:26 20:35 RBC 2.57 L (4.30-5.90) m/uL Hgb 8.2 L (13.0-17.5) gm/dL Hct 25.9 L (39.0-53.0) % MCV 100.7 H (80.0-100.0) fL POC Glucose (mg/dL) 155 H 206 H (75-99) mg/dL Crossmatch 08/21/18 08/21/18 Range/Units 07:10 07:41 RBC 2.22 L (4.30-5.90) m/uL Hgb 7.0 L (13.0-17.5) gm/dL Hct 22.1 L (39.0-53.0) % MCV (80.0-100.0) fL POC Glucose (mg/dL) 128 H (75-99) mg/dL Crossmatch Assessment and Plan Assessment: Assessment and Plan Lower GI bleed likely secondary to hemorrhoids or diverticular bleed given presentation Diabetes mellitus Hypertension CAD post CABG Hemoglobin from 10.3-8.9-9.5-8.8-7.0. Stool for occult blood positive. EGD unrevealing for source of bleed. Plans: Protonix 40 g IV twice a day. Transfuse 1 unit PRBC. H&H every 8 hours. Transfer to ICU for telemetry monitoring, discussed with Dr. Vigil. Continue normal saline 80 mL per hour. Zofran as needed for nausea and vomiting. GI consulted, discussed with Dr. Sanderson, possible C scope for tomorrow. [id number] glucose 128. Plans: Insulin sliding scale. Regular Accu-Cheks. Hypoglycemic precautions. BP 118/54. Plans: Continue amlodipine, lisinopril and metoprolol. Monitor vitals, adjust medications as necessary. Stable. Plans: Continue Lipitor. Hold aspirin until okay with GI. Patient with continued bleed. Transfer to ICU for closer monitoring. Will follow further GI recommendations.
[2018-08-21 11:12] LABS: Glucose,Whole Blood 230 mg/dL (75-99)
[2018-08-21 15:14] LABS: Basophils % (A) 0 %; Eosinophils # (A) 0.1 k/uL (0-0.7); Eosinophils % (A) 2 %; HCT 24.5 % (39.0-53.0); HGB 7.9 gm/dL (13.0-17.5); Lymphocytes # (A) 1.4 k/uL (1.0-4.8); Lymphocytes % (A) 24 %; MCH 30.9 pg (25.0-35.0); MCV 96.4 fL (80.0-100.0); Monocytes # (A) 0.4 k/uL (0-1.0); Monocytes % (A) 7 %; Neutrophils # (A) 3.9 k/uL (1.3-7.7); Neutrophils % (A) 66 %; Platelet Count 205 k/uL (150-450); RBC 2.54 m/uL (4.30-5.90); RDW 15.5 % (11.5-15.5)
--- NOTE | 2018-08-21 15:39 | P.CNPUL ---
History of Present Illness Consult date: 08/21/18 Reason for consult: other (GI bleeding) Chief complaint: Bright red blood per rectum History of present illness: This is a 73-year-old white male with history of multiple medical problems including colonic diverticulosis based on colonoscopy that he had about 5 years ago. History of hemorrhoids, history of diabetes hypertension CABG, patient presented to the hospital with 2 days history of bright red blood per rectum. Patient was initially admitted to the medical floor, however the patient had a further drop in his hemoglobin today, and he was noted to have more bright red blood per rectum earlier today, received a unit of packed RBCs for hemoglobin of 7 and arrangements were made for him to be in the ICU. Hence I was asked to see him on consultation. Patient already had EGD which came back nondiagnostic, and I believe is scheduled to undergo colonoscopy tomorrow. His admission hemoglobin was 10.3, earlier today was 7.0, and now it is 7.9. Review of Systems Constitutional: Denies weight loss, no fever, no chills, denies weakness or fatigue. HEENT: Denies earache, sore throat, denies diplopia. Cardiac: Denies chest pain, palpitations, syncope, or diaphoresis. Respiratory: Denies shortness of breath cough or wheezing. Gastrointestinal: As noted in HPI. Genitourinary: Denies dysuria frequency urgency hematuria. Musculoskeletal: Denies arthralgia or myalgia. Neurologic: Denies headache blurred vision dizziness syncope Endocrine: Denies heat or cold intolerance denies polyuria polyphagia polydipsia Skin: Denies itching or rashes.. Psychiatric: Denies any active symptoms of depression. Past Medical History Past Medical History: Diabetes Mellitus, GERD/Reflux, Hyperlipidemia, Hypertension, Pneumonia Additional Past Medical History / Comment(s): Bleeding hemorrhoids recently, pt taken off coumadin 6 weeks ago and started on aspirin, NIDDM type II, bilateral leg cramps at HS, anemia, schrapnel in his back. History of Any Multi-Drug Resistant Organisms: None Reported Past Surgical History: Coronary Bypass/CABG, Heart Catheterization, Joint Replacement Additional Past Surgical History / Comment(s): 2012 CABG with aortic valve replaced, left total knee replacement, colonoscopy Past Anesthesia/Blood Transfusion Reactions: No Reported Reaction Smoking Status: Former smoker - Past Family History Father Family Medical History: Myocardial Infarction ([place]) Additional Family Medical History / Comment(s): Father of a massive [place] at the age of 46yrs. Mother Family Medical History: Cancer Additional Family Medical History / Comment(s): Mother had lung cancer. She was a smoker. She at the age of 90yrs. Medications and Allergies Home Medications Medication Instructions Recorded Confirmed Type ALPRAZolam [Xanax] 1 mg PO HS 08/19/18 08/19/18 History Ascorbic Acid [Vitamin C] 1,000 mg PO TID 08/19/18 08/19/18 History Aspirin EC [Ecotrin Low Dose] 81 mg PO HS 08/19/18 08/19/18 History Atorvastatin [Lipitor] 20 mg PO HS 08/19/18 08/19/18 History Cyanocobalamin (Vitamin B-12) 1,000 mcg PO DAILY 08/19/18 08/19/18 History [Vitamin B-12] Ferrous Sulfate [Feosol] 325 mg PO DAILY 08/19/18 08/19/18 History Gabapentin [Neurontin] 100 mg PO HS 08/19/18 08/19/18 History Lisinopril 40 mg PO HS 08/19/18 08/19/18 History Melatonin 3 mg PO HS 08/19/18 08/19/18 History Metoprolol Succinate (ER) [Toprol 50 mg PO DAILY 08/19/18 08/19/18 History Xl] Omeprazole [PriLOSEC] 20 mg PO AC-BRKFST 08/19/18 08/19/18 History Pioglitazone HCl [Actos] 15 mg PO DAILY 08/19/18 08/19/18 History Tiotropium [place] [Spiriva 1 puff INHALATION RT-HS 08/19/18 08/19/18 History Respimat] amLODIPine [Norvasc] 5 mg PO HS 08/19/18 08/19/18 History glipiZIDE [Glucotrol] 2.5 mg PO AC-BID 08/19/18 08/19/18 History metFORMIN HCL 1,000 mg PO BID 08/19/18 08/19/18 History Allergies Allergy/AdvReac Type Severity Reaction Status Date / Time No Known Allergies Allergy Verified 08/19/18 09:52 Physical Exam Vitals: Vital Signs Temp Pulse Pulse Resp BP BP Pulse Ox 08/21/18 15:00 70 15 128/67 98 06/21/19 14:50 67 15 97 08/21/18 14:40 66 12 97 08/21/18 14:30 68 15 123/61 96 08/21/18 14:21 98.0 F 63 16 123/61 97 08/21/18 14:20 67 22 120/61 98 08/21/18 14:10 54 L 12 120/61 97 08/21/18 14:00 60 15 120/61 98 08/21/18 13:50 66 13 98 08/21/18 13:40 71 19 97 08/21/18 13:30 69 10 L 98 08/21/18 13:20 67 11 L 97 08/21/18 13:10 70 15 98 08/21/18 13:00 91 15 130/64 99 08/21/18 12:55 97.9 F 71 18 130/64 99 08/21/18 12:50 71 18 99 08/21/18 12:40 75 19 130/68 98 08/21/18 12:30 77 16 121/67 96 08/21/18 12:26 78 14 08/21/18 12:25 98.4 F 75 16 130/68 96 08/21/18 12:20 73 14 121/67 98 08/21/18 12:15 98.0 F 70 14 121/67 96 08/21/18 12:10 73 16 130/58 97 08/21/18 12:00 98.0 F 69 78 14 135/57 98 08/21/18 11:50 85 14 95 08/21/18 11:40 70 14 98 08/21/18 11:30 70 14 98 08/21/18 11:20 71 14 97 08/21/18 11:10 71 11 L 97 08/21/18 11:00 73 14 133/62 97 08/21/18 10:56 73 12 97 08/21/18 09:00 97.7 F 78 16 118/54 98 08/21/18 08:00 18 08/21/18 05:00 97.1 F L 69 18 91/48 96 08/21/18 00:00 18 08/20/18 22:00 97.8 F 75 18 129/63 99 08/20/18 17:39 66 141/62 99 08/20/18 17:24 68 140/65 100 08/20/18 17:09 78 123/79 99 08/20/18 16:54 96.4 F L 70 18 124/65 98 Intake and Output 08/21/18 08/21/18 08/21/18 06:59 14:59 22:59 Intake Total 400 390 80 Output Total 1200 Balance 400 -810 80 Intake: IV 80 80 Sodium Chloride 0.9% 1, 80 80 000 ml @ 80 mls/hr IV . [id number] [facility] Rx#:[id number] Oral 400 Blood Product 310 Rc Pheresis As-3 Unit 310 [id number] Output: Urine 600 Stool 600 Other: # Voids 1 1 1 # Bowel Movements 1 Physical Exam: Revealed 73-year-old white male in no distress. Head: Atraumatic normocephalic. HEENT:[Neck is supple.] [No neck masses.] [No thyromegaly.] [No JVD.] Dry mucous membranes, no icterus. PERRL Chest: [Clear throughout, no crackles, no rhonchi, no wheezes.] Cardiac Exam: [Normal S1 and S2, no S3 gallop, no murmur.] Abdomen: [Soft, nontender, no megaly, no rebound, no guarding, normal bowel sounds.] Extremities: [No clubbing, no edema, no cyanosis.] Neurological Exam: [No focal neurologic deficit.] Alert oriented 3. Skin: No rashes. Lymphatics: No lymphadenopathy. Psychiatric: Normal mood affect and normal mental status examination. Results - Laboratory Findings CBC and BMP: 08/21/18 14:50 08/19/18 09:50 PT/INR, D-dimer PT 9.9 sec (9.0-12.0) 08/19/18 09:50 INR 0.9 (<1.2) 08/19/18 09:50 Abnormal lab findings: Abnormal Labs 08/19/18 08/19/18 08/19/18 09:50 09:50 09:50 RBC 3.27 L Hgb 10.3 L Hct 31.9 L MCV Chloride 110 H BUN 29 H Glucose 108 H POC Glucose (mg/dL) Creatine Kinase 216 H Total Protein 5.5 L Crossmatch See Detail 06/19/19 06/19/19 06/19/19 15:56 18:20 20:52 RBC 2.80 L Hgb 8.9 L Hct 28.1 L MCV 100.7 H Chloride BUN Glucose POC Glucose (mg/dL) 165 H 120 H Creatine Kinase Total Protein Crossmatch 08/19/18 08/20/18 08/20/18 22:00 06:58 08:32 RBC 2.97 L 2.71 L Hgb 9.5 L 8.8 L Hct 29.8 L 27.4 L MCV 100.3 H 100.9 H Chloride BUN Glucose POC Glucose (mg/dL) 118 H Creatine Kinase Total Protein Crossmatch 08/20/18 08/20/18 08/20/18 11:57 14:47 16:57 RBC 2.45 L Hgb 7.6 L Hct 24.3 L MCV Chloride BUN Glucose POC Glucose (mg/dL) 241 H 155 H Creatine Kinase Total Protein Crossmatch 08/20/18 08/20/18 08/21/18 20:26 20:35 07:10 RBC 2.57 L Hgb 8.2 L Hct 25.9 L MCV 100.7 H Chloride BUN Glucose POC Glucose (mg/dL) 206 H 128 H Creatine Kinase Total Protein Crossmatch 08/21/18 08/21/18 08/21/18 07:41 11:00 14:50 RBC 2.22 L 2.54 L Hgb 7.0 L 7.9 L Hct 22.1 L 24.5 L MCV Chloride BUN Glucose POC Glucose (mg/dL) 230 H Creatine Kinase Total Protein Crossmatch Assessment and Plan Assessment: Impression: 1 acute lower GI bleeding, felt to be diverticular in nature secondary to diverticulosis unless proven otherwise. 2 acute blood loss anemia patient required so far 1 unit of packed RBCs and his hemoglobin at present is 7.9. 3 multiple comorbidities including hypertension, hypercholesterolemia, type 2 diabetes, GERD without esophagitis, previous CABG, underlying coronary artery disease, and underlying degenerative joint disease. Recommendation: Fully agree with the present treatment plan as per the admitting physician and gastroenterology. Patient is presently hemodynamically stable, will continue to monitor over the next 24 hours, and I understand the patient is scheduled for colonoscopy tomorrow. Based on the colonoscopy findings, further recommendations to follow. Time with Patient: Greater than 30
[2018-08-21 17:06] LABS: Glucose,Whole Blood 159 mg/dL (75-99)
[2018-08-21] MEDS ORDERED: PEG 3350-NA SULF,BICARB,CL/KCL 4,000 ML BOTTLE PO ONE (17:30)
[2018-08-21] MEDS: amLODIPine 5 MG TAB PO SCH (20:26)
[2018-08-21] MEDS: GABAPENTIN 100 MG CAP PO SCH (20:26)
[2018-08-21] MEDS: MELATONIN 3 MG TABLET PO SCH (20:26)
[2018-08-21] MEDS: ATORVASTATIN 20 MG TAB PO SCH (20:26)
[2018-08-21 20:49] LABS: Glucose,Whole Blood 157 mg/dL (75-99)
[2018-08-21 21:26] LABS: Anisocytosis Slight; Basophils % (A) 0 %; Eosinophils # (A) 0.2 k/uL (0-0.7); Eosinophils % (A) 3 %; HCT 25.7 % (39.0-53.0); HGB 8.4 gm/dL (13.0-17.5); Lymphocytes # (A) 1.9 k/uL (1.0-4.8); Lymphocytes % (A) 29 %; MCH 31.9 pg (25.0-35.0); MCHC 32.8 g/dL (31.0-37.0); MCV 97.1 fL (80.0-100.0); Mean Platelet Volume 7.2; Monocytes # (A) 0.5 k/uL (0-1.0); Monocytes % (A) 9 %; Neutrophils # (A) 3.7 k/uL (1.3-7.7); Neutrophils % (A) 58 %; Platelet Count 220 k/uL (150-450); RBC 2.65 m/uL (4.30-5.90); WBC 6.4 k/uL (3.8-10.6)
[2018-08-21] MEDS: LISINOPRIL 20 MG TAB PO SCH (22:14)
[2018-08-22] MEDS: ALPRAZolam 1 MG TAB PO SCH ×2 (00:41→22:30)
--- NOTE | 2018-08-22 00:46 | P.PN ---
Subjective Progress Note Date: 08/21/18 Principal diagnosis: Blood per rectum, anemia of acute blood loss Patient is seen lying in bed. Denying any abdominal pain. Did have further episodes of blood per rectum today. Objective - Vital Signs Vital signs: Vital Signs Temp 97.9 F 08/21/18 12:55 Pulse 71 08/21/18 12:55 Resp 18 08/21/18 12:55 BP 130/64 08/21/18 12:55 Pulse Ox 99 08/21/18 12:55 Intake & Output 08/20/18 08/21/18 08/21/18 18:59 06:59 18:59 Intake Total 1280 900 80 Output Total 750 Balance 1280 900 -670 Intake: IV 100 80 Sodium Chloride 0.9% 1, 80 000 ml @ 80 mls/hr IV . [id number] [facility] Rx#:[id number] Oral 1180 900 Blood Product 0 Rc Pheresis As-3 Unit 0 [id number] Output: Urine 150 Stool 600 Other: # Voids 1 1 1 # Bowel Movements 1 1 - Exam On physical examination, patient appears comfortable in no apparent distress. HEAD: Normocephalic, atraumatic. EYES: No scleral icterus. No conjunctival injection. MOUTH: No lesions, tongue midline. NECK: Trachea midline, no gross abnormalities. CHEST: Normal respiratory distress. ABDOMEN: Soft. Bowel sounds are positive. No organomegaly. No guarding or rigidity. EXTREMITIES: No pedal edema. SKIN: No rashes, no jaundice. NEUROLOGIC: Alert and oriented x3. No focal deficits. - Labs CBC & Chem 7: 08/21/18 21:00 08/19/18 09:50 Labs: Abnormal Lab Results - Last 24 Hours (Table) 08/19/18 08/20/18 08/20/18 Range/Units 09:50 14:47 16:57 RBC 2.45 L (4.30-5.90) m/uL Hgb 7.6 L (13.0-17.5) gm/dL Hct 24.3 L (39.0-53.0) % MCV (80.0-100.0) fL POC Glucose (mg/dL) 155 H (75-99) mg/dL Crossmatch See Detail 08/20/18 08/20/18 08/21/18 Range/Units 20:26 20:35 07:10 RBC 2.57 L (4.30-5.90) m/uL Hgb 8.2 L (13.0-17.5) gm/dL Hct 25.9 L (39.0-53.0) % MCV 100.7 H (80.0-100.0) fL POC Glucose (mg/dL) 206 H 128 H (75-99) mg/dL Crossmatch 08/21/18 08/21/18 Range/Units 07:41 11:00 RBC 2.22 L (4.30-5.90) m/uL Hgb 7.0 L (13.0-17.5) gm/dL Hct 22.1 L (39.0-53.0) % MCV (80.0-100.0) fL POC Glucose (mg/dL) 230 H (75-99) mg/dL Crossmatch Assessment and Plan (1) GI bleed Narrative/Plan: 73-year-old male admitted with painless bright red blood per rectum for 2 days prior to presentation. She does have a known history of diverticulosis with last colonoscopy 3 years ago per his recollection and negative for any other pathology. Suspicion is for acute colonic diverticular bleed, with EGD performed yesterday negative for any source of upper GI bleed. Current Visit: Yes Status: Acute Code(s): K92.2 - GASTROINTESTINAL HEMORRHAGE, UNSPECIFIED SNOMED Code(s): 27476395 (2) Acute blood loss anemia Current Visit: Yes Status: Acute Code(s): D62 - ACUTE POSTHEMORRHAGIC ANEMIA SNOMED Code(s): 487912054 (3) Hematochezia Current Visit: Yes Status: Acute Code(s): K92.1 - MELENA SNOMED Code(s): 963059101 Plan: Supportive care Liquid diet Bowel prep ordered Nothing by mouth after midnight Plan for colonoscopy tomorrow for further evaluation Okay to continue Protonix therapy Continue to monitor hemoglobin and hematocrit and transfuse as needed Continue to monitor symptoms and labs including CBC Thank you for allowing us to participate in the care of the patient we will lisa hayes
[2018-08-22 05:03] LABS: Basophils % (A) 0 %; Eosinophils # (A) 0.2 k/uL (0-0.7); Eosinophils % (A) 3 %; HCT 22.5 % (39.0-53.0); HGB 7.1 gm/dL (13.0-17.5); Lymphocytes # (A) 1.5 k/uL (1.0-4.8); Lymphocytes % (A) 23 %; MCH 31.2 pg (25.0-35.0); MCHC 31.8 g/dL (31.0-37.0); MCV 98.1 fL (80.0-100.0); Macrocytosis Slight; Mean Platelet Volume 6.7; Monocytes # (A) 0.5 k/uL (0-1.0); Monocytes % (A) 8 %; Neutrophils # (A) 4.1 k/uL (1.3-7.7); Neutrophils % (A) 63 %; Platelet Count 195 k/uL (150-450); RBC 2.29 m/uL (4.30-5.90); RDW 15.6 % (11.5-15.5); WBC 6.4 k/uL (3.8-10.6)
[2018-08-22 05:18] LABS: African American GFR (CKD) >90 (>60 ml/min/1.73 sqM); Anion Gap 4 mmol/L; Blood Urea Nitrogen 10 mg/dL (9-20); Carbon Dioxide 25 mmol/L (22-30); Chloride 111 mmol/L (98-107); Glucose 118 mg/dL (74-99); Magnesium 1.6 mg/dL (1.6-2.3); Phosphorus 2.9 mg/dL (2.5-4.5); Potassium 4.1 mmol/L (3.5-5.1); Sodium 140 mmol/L (137-145)
[2018-08-22] MEDS: SODIUM CHLORIDE 0.9% 1,000 ML IV SCH ×2 (05:49→17:05)
[2018-08-22] MEDS: MAGNESIUM SULFATE-D5W PMX 1 GM in DEXTROSE/WATER 1 100ML.BAG IVPB SCH ×2 (05:54→06:56)
[2018-08-22] MEDS: INSULIN ASPART (NovoLOG) 100 UNIT/ML VIAL SQ SCH ×4 (07:02→21:00)
[2018-08-22 07:06] LABS: Glucose,Whole Blood 170 mg/dL (75-99)
[2018-08-22] MEDS: PANTOPRAZOLE 40 MG/10 ML VIAL IV SCH (07:57)
[2018-08-22] MEDS: METOPROLOL SUCCINATE (ER) 50 MG TAB.ER.24H PO SCH (07:57)
[2018-08-22] MEDS ORDERED: LIDOCAINE 1% INJ 10MG/ML (20 ML MDV) ONE (08:43)
[2018-08-22] MEDS ORDERED: PROPOFOL 10 MG/ML 20 ML VIAL IV ONE (08:43)
[2018-08-22] MEDS ORDERED: IV FLUID CONTINUATION 200 ML IV ONE (08:44)
[2018-08-22] MEDS ORDERED: LACTATED RINGERS 1,000 ML IV ONE (09:19)
--- NOTE | 2018-08-22 09:35 | P.PCN ---
Date of Procedure: 08/22/18 Description of Procedure: BRIEF HISTORY: 73-year-old gentleman resident [place] with a history of colonic diverticulosis, diabetes mellitus, hypertension, CAD AVR, CABG presents with painless gross bloody bowel movements 2 days. Denies hematemesis melena fever chills or weight loss. Last screening colonoscopy 3 years ago to his memory was unremarkable. Previous colonoscopies in the past have mention colonic diverticular disease. 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 Flexible sigmoidoscopy was performed in the GI office 2 months ago and was told his bleeding was from a hemorrhoid with recommendations for colonoscopy in 3 years. Denies NSAIDs excessive aspirin or alcohol. Admission hemoglobin 10.3 presently 8.8. MCV 97. Platelet 263. INR 0.9. FOBT positive. BUN 29. Creatinine 0.9. Abdominal x-ray no evidence of bowel obstruction or free air. He is still passing dark burgundy movements with clots. PROCEDURE PERFORMED: Colonoscopy. PREOPERATIVE DIAGNOSIS: GI bleed, anemia of acute blood loss. ESTIMATED BLOOD LOSS: Minimal. IV sedation per Anesthesia. PROCEDURE: After informed consent was obtained, the patient, was brought into the endoscopy unit. IV sedation was administered by Anesthesia under continuous monitoring. Digital rectal examination was normal. Initially the Olympus CF-190 flexible video colonoscope was then inserted in the rectum, gradually advanced into the cecum without any difficulty. Careful examination was performed as the scope was gradually being withdrawn. Ileocecal valve and the appendiceal orifice were visualized and appeared normal. Prep was good. Mucosa of the cecum, ascending colon, transverse colon, descending colon, sigmoid colon, and rectum appeared normal. The patient had a large number of small and large diverticula noted throughout the colon. Large internal hemorrhoids which were somewhat inflamed. Retroflexion was performed in the rectum and no lesions were seen. The patient tolerated the procedure well. IMPRESSION: No fresh blood or old blood noted throughout the entire colon. Pandiverticulosis. Large internal hemorrhoids. Normal-appearing colon from rectum to cecum. RECOMMENDATIONS: Findings of this examination were discussed with the patient his girlfriend. Okay to resume full liquid diet. Continue to monitor hemoglobin and hematocrit and transfuse as needed. Continue supportive care.
--- NOTE | 2018-08-22 11:33 | P.PN ---
Subjective Progress Note Date: 08/22/18 Principal diagnosis: Acute GI bleeding most likely lower GI in nature. This is a 73-year-old white male with history of multiple medical problems including colonic diverticulosis based on colonoscopy that he had about 5 years ago. History of hemorrhoids, history of diabetes hypertension CABG, patient presented to the hospital with 2 days history of bright red blood per rectum. Patient was initially admitted to the medical floor, however the patient had a further drop in his hemoglobin today, and he was noted to have more bright red blood per rectum earlier today, received a unit of packed RBCs for hemoglobin of 7 and arrangements were made for him to be in the ICU. Hence I was asked to see him on consultation. Patient already had EGD which came back nondiagnostic, and I believe is scheduled to undergo colonoscopy tomorrow. His admission hemoglobin was 10.3, earlier today was 7.0, and now it is 7.9. Reevaluated today on 08/22/2018, patient underwent colonoscopy and he was found to have mostly significant diverticular disease/diverticulosis, no evidence of active bleeding. Patient's hemoglobin today was noted to be 7.1, and it was 8.4 yesterday. Electrolytes are normal renal profile is normal, no active bleeding noted during his colonoscopy. Patient received 1 unit of packed RBCs since admission so far. Last night, the patient had episodes of bloody bowel movements/burgundy colored stools. And his hemoglobin this morning is 7.1. Objective - Vital Signs Vital signs: Vital Signs Temp 97.8 F 08/22/18 08:00 Pulse 61 08/22/18 11:00 Resp 13 08/22/18 11:00 BP 127/60 08/22/18 08:00 Pulse Ox 96 08/22/18 08:00 Intake & Output 08/21/18 08/22/18 08/22/18 18:59 06:59 18:59 Intake Total 710 4960 520 Output Total 1950 725 0 Balance -1240 4235 520 Weight 82.1 kg Intake: IV 400 960 520 Sodium Chloride 0.9% 1, 400 960 320 000 ml @ 80 mls/hr IV . [id number] [facility] Rx#:[id number] Oral 4000 Blood Product 310 Rc Pheresis As-3 Unit 310 [id number] Output: Urine 1350 725 0 Stool 600 Other: # Voids 1 0 2 # Bowel Movements 0 1 - Exam Physical Exam: Revealed 73-year-old white male in no distress. Head: Atraumatic normocephalic. HEENT:[Neck is supple.] [No neck masses.] [No thyromegaly.] [No JVD.] Dry mucous membranes, no icterus. PERRL Chest: [Clear throughout, no crackles, no rhonchi, no wheezes.] Cardiac Exam: [Normal S1 and S2, no S3 gallop, no murmur.] Abdomen: [Soft, nontender, no megaly, no rebound, no guarding, normal bowel sounds.] Extremities: [No clubbing, no edema, no cyanosis.] Neurological Exam: [No focal neurologic deficit.] Alert oriented 3. Skin: No rashes. Lymphatics: No lymphadenopathy. Psychiatric: Normal mood affect and normal mental status examination. - Labs CBC & Chem 7: 08/22/18 04:35 08/22/18 04:35 Labs: Abnormal Lab Results - Last 24 Hours (Table) 08/19/18 08/21/18 08/21/18 Range/Units 09:50 14:50 16:55 RBC 2.54 L (4.30-5.90) m/uL Hgb 7.9 L (13.0-17.5) gm/dL Hct 24.5 L (39.0-53.0) % RDW (11.5-15.5) % Chloride (98-107) mmol/L Glucose (74-99) mg/dL POC Glucose (mg/dL) 159 H (75-99) mg/dL Calcium (8.4-10.2) mg/dL Crossmatch See Detail 08/21/18 08/21/18 08/22/18 Range/Units 20:37 21:00 04:35 RBC 2.65 L 2.29 L (4.30-5.90) m/uL Hgb 8.4 L 7.1 L (13.0-17.5) gm/dL Hct 25.7 L 22.5 L (39.0-53.0) % RDW 16.0 H 15.6 H (11.5-15.5) % Chloride (98-107) mmol/L Glucose (74-99) mg/dL POC Glucose (mg/dL) 157 H (75-99) mg/dL Calcium (8.4-10.2) mg/dL Crossmatch 08/22/18 08/22/18 Range/Units 04:35 06:55 RBC (4.30-5.90) m/uL Hgb (13.0-17.5) gm/dL Hct (39.0-53.0) % RDW (11.5-15.5) % Chloride 111 H (98-107) mmol/L Glucose 118 H (74-99) mg/dL POC Glucose (mg/dL) 170 H (75-99) mg/dL Calcium 8.0 L (8.4-10.2) mg/dL Crossmatch Assessment and Plan Assessment: Impression: 1 acute lower GI bleeding, felt to be diverticular in nature secondary to diverticulosis, status post colonoscopy, no active bleeding was noted but the patient clearly had significant diverticular disease. 2 acute blood loss anemia patient required so far 1 unit of packed RBCs and his hemoglobin at present is 7.1 3 multiple comorbidities including hypertension, hypercholesterolemia, type 2 diabetes, GERD without esophagitis, previous CABG, underlying coronary artery disease, and underlying degenerative joint disease. Recommendation: Since the patient was found to have no active bleeding througho ut the entire colon, and there was evidence of palacios diverticulosis, there was also evidence of large internal hemorrhoids but not bleeding, the recommendation is to resume full liquid diet, continue to monitor hemoglobin and hematocrit, transfuse as needed for hemoglobin below 7, could be transferred out of the ICU and monitored on a medical floor. We'll continue to follow. Not quite ready for discharge planning since the patient is having intermittent burgundy colored stools. Time with Patient: Less than 30
[2018-08-22] MEDS: PANTOPRAZOLE 40 MG TABLET PO SCH (12:01)
[2018-08-22] MEDS: FERROUS SULFATE 325 MG TAB PO SCH (12:09)
[2018-08-22 12:11] LABS: Glucose,Whole Blood 158 mg/dL (75-99)
[2018-08-22 12:52] LABS: HCT 24.8 % (39.0-53.0); HGB 7.8 gm/dL (13.0-17.5); Hypochromasia Slight; MCHC 31.4 g/dL (31.0-37.0); Macrocytosis Slight; Mean Platelet Volume 8.3; Platelet Count 194 k/uL (150-450); RBC 2.51 m/uL (4.30-5.90); RDW 15.8 % (11.5-15.5); WBC 6.2 k/uL (3.8-10.6)
--- NOTE | 2018-08-22 15:24 | P.PN ---
Subjective Progress Note Date: 08/22/18 Principal diagnosis: Bright red blood per rectum Patient was seen and examined. No acute events overnight. Colonoscopy done today unrevealing of bleed. Patient with bowel movement, no blood. Patient denies any chest pain, shortness of breath or palpitations. No fever or chills. No nausea or vomiting. Objective - Vital Signs Vital signs: Vital Signs Temp 97.8 F 08/22/18 08:00 Pulse 80 08/22/18 08:00 Resp 20 08/22/18 08:00 BP 127/60 08/22/18 08:00 Pulse Ox 96 08/22/18 08:00 Intake & Output 08/21/18 08/22/18 08/22/18 18:59 06:59 18:59 Intake Total 710 4960 360 Output Total 1950 725 0 Balance -1240 4235 360 Weight 82.1 kg Intake: IV 400 960 360 Sodium Chloride 0.9% 1, 400 960 160 000 ml @ 80 mls/hr IV . [id number] [facility] Rx#:[id number] Oral 4000 Blood Product 310 Rc Pheresis As-3 Unit 310 [id number] Output: Urine 1350 725 0 Stool 600 Other: # Voids 1 0 1 # Bowel Movements 0 1 - Exam General: [non toxic], [no distress], [appears at stated age] Derm: [warm], [dry] Head: [atraumatic], [normocephalic], [symmetric] Eyes: [EOMI], [no lid lag], [anicteric sclera] Mouth: [no lip lesion], [mucus membranes moist] Cardiovascular: [S1S2 reg], [no murmur], [positive DP pulse bilateral], Lungs: [CTA bilateral], [no rhonchi, no rales] , [no accessory muscle use] Abdominal: [soft], [ nontender to palpation], [no guarding], [no appreciable organomegaly] Ext: [no gross muscle atrophy], [no edema], [no contractures] Neuro: [no focal neuro deficits] Psych: [Alert], [oriented], [appropriate affect] - Labs CBC & Chem 7: 08/22/18 12:37 08/22/18 04:35 Labs: Abnormal Lab Results - Last 24 Hours (Table) 08/19/18 08/21/18 08/21/18 Range/Units 09:50 11:00 14:50 RBC 2.54 L (4.30-5.90) m/uL Hgb 7.9 L (13.0-17.5) gm/dL Hct 24.5 L (39.0-53.0) % RDW (11.5-15.5) % Chloride (98-107) mmol/L Glucose (74-99) mg/dL POC Glucose (mg/dL) 230 H (75-99) mg/dL Calcium (8.4-10.2) mg/dL Crossmatch See Detail 08/21/18 08/21/18 08/21/18 Range/Units 16:55 20:37 21:00 RBC 2.65 L (4.30-5.90) m/uL Hgb 8.4 L (13.0-17.5) gm/dL Hct 25.7 L (39.0-53.0) % RDW 16.0 H (11.5-15.5) % Chloride (98-107) mmol/L Glucose (74-99) mg/dL POC Glucose (mg/dL) 159 H 157 H (75-99) mg/dL Calcium (8.4-10.2) mg/dL Crossmatch 08/22/18 08/22/18 08/22/18 Range/Units 04:35 04:35 06:55 RBC 2.29 L (4.30-5.90) m/uL Hgb 7.1 L (13.0-17.5) gm/dL Hct 22.5 L (39.0-53.0) % RDW 15.6 H (11.5-15.5) % Chloride 111 H (98-107) mmol/L Glucose 118 H (74-99) mg/dL POC Glucose (mg/dL) 170 H (75-99) mg/dL Calcium 8.0 L (8.4-10.2) mg/dL Crossmatch Assessment and Plan Assessment: Assessment and Plan Lower GI bleed likely secondary to hemorrhoids or diverticular bleed given presentation Diabetes mellitus Hypertension CAD post CABG Hemoglobin from 10.3-8.9-9.5-8.8-7.0-7.9-8.4-7.1. Stool for occult blood positive. EGD unrevealing for source of bleed. Colonoscopy shows pandiverticulosis and large internal hemorrhoids. Plans: Protonix 40 g IV twice a day. H&H every 8 hours. Continue normal saline 80 mL per hour. Restart diet. Zofran as needed for nausea and vomiting. Follow GI recommendations. Follow CBC in the afternoon. [id number] glucose 170. Plans: Insulin sliding scale. Regular Accu-Cheks. Hypoglycemic precautions. BP 127/60. Plans: Continue amlodipine, lisinopril and metoprolol. Monitor vitals, adjust medications as necessary. Stable. Plans: Continue Lipitor. Hold aspirin until okay with GI. Patient has had upper and lower endoscopy that shows large internal hemorrhoids and pandiverticulosis. No source of bleeding identified. Hemoglobin 7.1 this morning, will continue to monitor. Possible DC tomorrow. Can transfer out of ICU if okay with ICU attending.
[2018-08-22 17:01] LABS: Glucose,Whole Blood 175 mg/dL (75-99)
[2018-08-22] MEDS: amLODIPine 5 MG TAB PO SCH (21:00)
[2018-08-22] MEDS: GABAPENTIN 100 MG CAP PO SCH (21:00)
[2018-08-22] MEDS: MELATONIN 3 MG TABLET PO SCH (21:00)
[2018-08-22] MEDS: ATORVASTATIN 20 MG TAB PO SCH (21:00)
[2018-08-22] MEDS: metFORMIN 500 MG TAB PO SCH (21:00)
[2018-08-22] MEDS: LISINOPRIL 20 MG TAB PO SCH (22:31)
[2018-08-22 23:49] LABS: Glucose,Whole Blood 98 mg/dL (75-99)
[2018-08-23 02:21] LABS: Glucose,Whole Blood 89 mg/dL (75-99)
[2018-08-23 05:22] LABS: Anisocytosis Slight; Basophils % (A) 1 %; Eosinophils # (A) 0.1 k/uL (0-0.7); Eosinophils % (A) 2 %; HCT 20.7 % (39.0-53.0); Lymphocytes # (A) 1.3 k/uL (1.0-4.8); Lymphocytes % (A) 28 %; MCV 96.7 fL (80.0-100.0); Mean Platelet Volume 8.1; Monocytes # (A) 0.4 k/uL (0-1.0); Monocytes % (A) 9 %; Neutrophils # (A) 2.8 k/uL (1.3-7.7); Neutrophils % (A) 60 %; Platelet Count 167 k/uL (150-450); RBC 2.14 m/uL (4.30-5.90); RDW 16.6 % (11.5-15.5); WBC 4.7 k/uL (3.8-10.6)
[2018-08-23 05:29] LABS: HGB 6.8 gm/dL (13.0-17.5)
[2018-08-23] MEDS: SODIUM CHLORIDE 0.9% 1,000 ML IV SCH ×2 (06:50→17:36)
[2018-08-23] MEDS: INSULIN ASPART (NovoLOG) 100 UNIT/ML VIAL SQ SCH ×4 (06:56→21:08)
[2018-08-23 06:59] LABS: Glucose,Whole Blood 136 mg/dL (75-99)
[2018-08-23] MEDS: FERROUS SULFATE 325 MG TAB PO SCH (09:10)
[2018-08-23] MEDS: PANTOPRAZOLE 40 MG TABLET PO SCH (09:10)
[2018-08-23] MEDS: METOPROLOL SUCCINATE (ER) 50 MG TAB.ER.24H PO SCH (09:11)
[2018-08-23] MEDS: PIOGLITAZONE 15 MG TAB PO SCH (09:11)
[2018-08-23] MEDS: metFORMIN 500 MG TAB PO SCH ×2 (09:11→17:42)
[2018-08-23 12:05] LABS: Glucose,Whole Blood 172 mg/dL (75-99)
--- NOTE | 2018-08-23 12:50 | P.PN ---
Subjective Progress Note Date: 08/23/18 Principal diagnosis: Blood per rectum, anemia of acute blood loss Patient is seen lying in bed and is reporting a brown nonbloody bowel movement today. No abdominal pain reported. Tolerating diet. Objective - Vital Signs Vital signs: Vital Signs Temp 97.9 F 08/23/18 11:53 Pulse 74 08/23/18 11:53 Resp 16 08/23/18 11:53 BP 121/57 08/23/18 11:53 Pulse Ox 99 08/23/18 11:53 Intake & Output 08/22/18 08/23/18 08/23/18 18:59 06:59 18:59 Intake Total 920 640 80 Output Total 0 8 Balance 920 640 72 Weight 82.6 kg Intake: IV 920 640 80 Sodium Chloride 0.9% 1, 720 640 80 000 ml @ 80 mls/hr IV . [id number] [facility] Rx#:[id number] Blood Product 0 Rc As-1 Unit 0 [id number] Output: Urine 0 2 Stool 6 Other: # Voids 1 # Bowel Movements 1 - Exam On physical examination, patient appears comfortable in no apparent distress. HEAD: Normocephalic, atraumatic. EYES: No scleral icterus. No conjunctival injection. MOUTH: No lesions, tongue midline. NECK: Trachea midline, no gross abnormalities. CHEST: Normal respiratory distress. ABDOMEN: Soft. Bowel sounds are positive. No organomegaly. No guarding or rigidity. EXTREMITIES: No pedal edema. SKIN: No rashes, no jaundice. NEUROLOGIC: Alert and oriented x3. No focal deficits. - Labs CBC & Chem 7: 08/23/18 05:03 08/22/18 04:35 Labs: Abnormal Lab Results - Last 24 Hours (Table) 08/22/18 08/22/18 08/22/18 Range/Units 12:35 12:37 16:50 RBC 2.51 L (4.30-5.90) m/uL Hgb 7.8 L (13.0-17.5) gm/dL Hct 24.8 L (39.0-53.0) % RDW 15.8 H (11.5-15.5) % POC Glucose (mg/dL) 175 H (75-99) mg/dL Crossmatch See Detail 08/23/18 08/23/18 08/23/18 Range/Units 05:03 06:47 11:54 RBC 2.14 L (4.30-5.90) m/uL Hgb 6.8 L* (13.0-17.5) gm/dL Hct 20.7 L (39.0-53.0) % RDW 16.6 H (11.5-15.5) % POC Glucose (mg/dL) 136 H 172 H (75-99) mg/dL Crossmatch Assessment and Plan (1) GI bleed Narrative/Plan: 73-year-old male admitted with painless bright red blood per rectum for 2 days prior to presentation. She does have a known history of diverticulosis with last colonoscopy 3 years ago per his recollection and negative for any other pathology. Suspicion is for acute colonic diverticular bleed, with EGD performed and negative for any source of upper GI bleed. Colonoscopy was significant for diverticulosis and internal hemorrhoids with no source of bleeding identified. Current Visit: Yes Status: Acute Code(s): K92.2 - GASTROINTESTINAL HEMORRHAGE, UNSPECIFIED SNOMED Code(s): 29302230 (2) Acute blood loss anemia Current Visit: Yes Status: Acute Code(s): D62 - ACUTE POSTHEMORRHAGIC ANEMIA SNOMED Code(s): 939795715 (3) Hematochezia Current Visit: Yes Status: Acute Code(s): K92.1 - MELENA SNOMED Code(s): 326272374 Plan: Supportive care Low fiber diet Okay to continue Protonix therapy Continue to monitor hemoglobin and hematocrit and transfuse as needed, repeat hemoglobin pending after AM hemoglobin was 6.8 Continue to monitor symptoms and labs including CBC Thank you for allowing us to participate in the care of the patient the gastroenterology service will stand by, please call us back with any questions or concerns
--- NOTE | 2018-08-23 13:01 | P.PN ---
Subjective Progress Note Date: 08/23/18 Principal diagnosis: Acute GI bleeding most likely lower GI in nature. This is a 73-year-old white male with history of multiple medical problems including colonic diverticulosis based on colonoscopy that he had about 5 years ago. History of hemorrhoids, history of diabetes hypertension CABG, patient presented to the hospital with 2 days history of bright red blood per rectum. Patient was initially admitted to the medical floor, however the patient had a further drop in his hemoglobin today, and he was noted to have more bright red blood per rectum earlier today, received a unit of packed RBCs for hemoglobin of 7 and arrangements were made for him to be in the ICU. Hence I was asked to see him on consultation. Patient already had EGD which came back nondiagnostic, and I believe is scheduled to undergo colonoscopy tomorrow. His admission hemoglobin was 10.3, earlier today was 7.0, and now it is 7.9. Reevaluated today on 08/22/2018, patient underwent colonoscopy and he was found to have mostly significant diverticular disease/diverticulosis, no evidence of active bleeding. Patient's hemoglobin today was noted to be 7.1, and it was 8.4 yesterday. Electrolytes are normal renal profile is normal, no active bleeding noted during his colonoscopy. Patient received 1 unit of packed RBCs since admission so far. Last night, the patient had episodes of bloody bowel movements/burgundy colored stools. And his hemoglobin this morning is 7.1. Reevaluated today on 08/23/2018, patient is lying in bed, very comfortable, in no distress, on room air, denies any active bleeding in the last 24 hours, however his hemoglobin did is noted to be low today at 6.8 Patient is scheduled to have one unit of packed RBCs given,and will likely need to monitor over the next 24 hours, and if he remains stable without any active bleeding, could potentially consider discharge planning in the next 24 hours Objective - Vital Signs Vital signs: Vital Signs Temp 97.9 F 08/23/18 11:53 Pulse 74 08/23/18 11:53 Resp 16 08/23/18 11:53 BP 121/57 08/23/18 11:53 Pulse Ox 99 08/23/18 11:53 Intake & Output 08/22/18 08/23/18 08/23/18 18:59 06:59 18:59 Intake Total 920 640 80 Output Total 0 8 Balance 920 640 72 Weight 82.6 kg Intake: IV 920 640 80 Sodium Chloride 0.9% 1, 720 640 80 000 ml @ 80 mls/hr IV . [id number] [facility] Rx#:[id number] Blood Product 0 Rc As-1 Unit 0 [id number] Output: Urine 0 2 Stool 6 Other: # Voids 1 # Bowel Movements 1 - Exam Physical Exam: Revealed 73-year-old white male in no distress. Head: Atraumatic normocephalic. HEENT:[Neck is supple.] [No neck masses.] [No thyromegaly.] [No JVD.] Dry mucous membranes, no icterus. PERRL Chest: [Clear throughout, no crackles, no rhonchi, no wheezes.] Cardiac Exam: [Normal S1 and S2, no S3 gallop, no murmur.] Abdomen: [Soft, nontender, no megaly, no rebound, no guarding, normal bowel sounds.] Extremities: [No clubbing, no edema, no cyanosis.] Neurological Exam: [No focal neurologic deficit.] Alert oriented 3. Skin: No rashes. Lymphatics: No lymphadenopathy. Psychiatric: Normal mood affect and normal mental status examination. - Labs CBC & Chem 7: 08/23/18 05:03 08/22/18 04:35 Labs: Abnormal Lab Results - Last 24 Hours (Table) 08/22/18 08/22/18 08/23/18 Range/Units 12:35 16:50 05:03 RBC 2.14 L (4.30-5.90) m/uL Hgb 6.8 L* (13.0-17.5) gm/dL Hct 20.7 L (39.0-53.0) % RDW 16.6 H (11.5-15.5) % POC Glucose (mg/dL) 175 H (75-99) mg/dL Crossmatch See Detail 08/23/18 08/23/18 Range/Units 06:47 11:54 RBC (4.30-5.90) m/uL Hgb (13.0-17.5) gm/dL Hct (39.0-53.0) % RDW (11.5-15.5) % POC Glucose (mg/dL) 136 H 172 H (75-99) mg/dL Crossmatch Assessment and Plan Assessment: Impression: 1 acute lower GI bleeding, felt to be diverticular in nature secondary to diverticulosis, status post colonoscopy, no active bleeding was noted but the patient clearly had significant diverticular disease. 2 acute blood loss anemia patient required so far 1 unit of packed RBCs and his hemoglobin at present is 6.8 today, the patient received one more unit of packed RBCs today. 3 multiple comorbidities including hypertension, hypercholesterolemia, type 2 diabetes, GERD without esophagitis, previous CABG, underlying coronary artery disease, and underlying degenerative joint disease. Recommendation: transfuse the patient with 1 unit of packed RBCs, continue present treatment plan and his present meds, ambulate the patient, consider transferring the patient out of the ICU to a regular medical floor today. We'll continue to follow. Possible discharge planning in the next 24-48 hours. Repeat hemoglobin and hematocrit in a.m. Patient reported no bleeding in the last 24 hours. Time with Patient: Less than 30
--- NOTE | 2018-08-23 14:13 | P.PN ---
Subjective Progress Note Date: 08/23/18 Principal diagnosis: GI bleed Patient was seen and examined. No acute events overnight. Patient reports normal bowel movement this morning. Hemoglobin trending down to 6.8. One PRBC ordered. He denies any dizziness, chest pain, shortness of breath or palpitations. No nausea or vomiting. No fever or chills. Objective - Vital Signs Vital signs: Vital Signs Temp 98.5 F 08/23/18 13:18 Pulse 76 08/23/18 13:18 Resp 20 08/23/18 13:18 BP 116/64 08/23/18 13:18 Pulse Ox 97 08/23/18 13:18 Intake & Output 08/22/18 08/23/18 08/23/18 18:59 06:59 18:59 Intake Total 920 640 390 Output Total 0 8 Balance 920 640 382 Weight 82.6 kg Intake: IV 920 640 80 Sodium Chloride 0.9% 1, 720 640 80 000 ml @ 80 mls/hr IV . [id number] [facility] Rx#:[id number] Blood Product 310 Rc As-1 Unit 310 [id number] Output: Urine 0 2 Stool 6 Other: # Voids 1 # Bowel Movements 1 - Exam General: [non toxic], [no distress], [appears at stated age] Derm: [warm], [dry] Head: [atraumatic], [normocephalic], [symmetric] Eyes: [EOMI], [no lid lag], [anicteric sclera] Mouth: [no lip lesion], [mucus membranes moist] Cardiovascular: [S1S2 reg], [no murmur], [positive DP pulse bilateral], Lungs: [CTA bilateral], [no rhonchi, no rales] , [no accessory muscle use] Abdominal: [soft], [ nontender to palpation], [no guarding], [no appreciable organomegaly] Ext: [no gross muscle atrophy], [no edema], [no contractures] Neuro: [no focal neuro deficits] Psych: [Alert], [oriented], [appropriate affect] - Labs CBC & Chem 7: 08/23/18 05:03 08/22/18 04:35 Labs: Abnormal Lab Results - Last 24 Hours (Table) 08/22/18 08/22/18 08/23/18 Range/Units 12:35 16:50 05:03 RBC 2.14 L (4.30-5.90) m/uL Hgb 6.8 L* (13.0-17.5) gm/dL Hct 20.7 L (39.0-53.0) % RDW 16.6 H (11.5-15.5) % POC Glucose (mg/dL) 175 H (75-99) mg/dL Crossmatch See Detail 08/23/18 08/23/18 Range/Units 06:47 11:54 RBC (4.30-5.90) m/uL Hgb (13.0-17.5) gm/dL Hct (39.0-53.0) % RDW (11.5-15.5) % POC Glucose (mg/dL) 136 H 172 H (75-99) mg/dL Crossmatch Assessment and Plan Assessment: Assessment and Plan Lower GI bleed likely secondary to hemorrhoids or diverticular bleed given prese ntation Diabetes mellitus Hypertension CAD post CABG Hemoglobin from 10.3-8.9-9.5-8.8-7.0-7.9-8.4-7.1-7.8-6.8. Stool for occult blood positive. EGD unrevealing for source of bleed. Colonoscopy shows pandiverticulosis and large internal hemorrhoids. Plans: 1 PBRC today, repeat Hg tomorrow morning. Protonix 40 g IV twice a day. H&H every 8 hours. Continue normal saline 80 mL per hour. Restart diet. Zofran as needed for nausea and vomiting. Follow GI recommendations. [id number] glucose 172. Plans: Insulin sliding scale. Regular [place]. [place] [address]. Plans: Continue amlodipine, lisinopril and metoprolol. Monitor vitals, adjust medications as necessary. Stable. Plans: Continue Lipitor. Hold aspirin until okay with GI. Patient has had upper and lower endoscopy that shows large internal hemorrhoids and pandiverticulosis. No source of bleeding identified. Hemoglobin 6.8 this morning, 1 PRBC ordered, will continue to monitor. Possible DC tomorrow. Can transfer out of ICU if okay with ICU attending.
[2018-08-23 15:18] LABS: Anisocytosis Slight; Basophils % (A) 1 %; Eosinophils # (A) 0.1 k/uL (0-0.7); Eosinophils % (A) 2 %; HCT 28.5 % (39.0-53.0); Hypochromasia Slight; Lymphocytes # (A) 1.7 k/uL (1.0-4.8); Lymphocytes % (A) 23 %; MCH 31.2 pg (25.0-35.0); MCHC 32.3 g/dL (31.0-37.0); MCV 96.6 fL (80.0-100.0); Macrocytosis Slight; Mean Platelet Volume 7.7; Monocytes # (A) 0.5 k/uL (0-1.0); Monocytes % (A) 7 %; Neutrophils # (A) 4.9 k/uL (1.3-7.7); Neutrophils % (A) 66 %; Platelet Count 221 k/uL (150-450); RBC 2.95 m/uL (4.30-5.90); RDW 17.1 % (11.5-15.5); WBC 7.5 k/uL (3.8-10.6)
[2018-08-23 15:19] LABS: HGB 9.2 gm/dL (13.0-17.5)
[2018-08-23 16:52] LABS: Glucose,Whole Blood 138 mg/dL (75-99)
[2018-08-23 20:15] LABS: Glucose,Whole Blood 140 mg/dL (75-99)
[2018-08-23] MEDS: ATORVASTATIN 20 MG TAB PO SCH (21:07)
[2018-08-23] MEDS: MELATONIN 3 MG TABLET PO SCH (21:08)
[2018-08-23] MEDS: amLODIPine 5 MG TAB PO SCH (21:08)
[2018-08-23] MEDS: GABAPENTIN 100 MG CAP PO SCH (21:08)
[2018-08-23] MEDS: LISINOPRIL 20 MG TAB PO SCH (21:11)
[2018-08-23] MEDS: ALPRAZolam 1 MG TAB PO SCH (22:35)
[2018-08-24 00:06] VITALS: RESP 18
[2018-08-24] MEDS: METOPROLOL SUCCINATE (ER) 50 MG TAB.ER.24H PO SCH (07:10)
[2018-08-24] MEDS: PANTOPRAZOLE 40 MG TABLET PO SCH (07:10)
[2018-08-24] MEDS: metFORMIN 500 MG TAB PO SCH (07:10)
[2018-08-24] MEDS: INSULIN ASPART (NovoLOG) 100 UNIT/ML VIAL SQ SCH (07:10)
[2018-08-24] MEDS: FERROUS SULFATE 325 MG TAB PO SCH (07:10)
[2018-08-24] MEDS: PIOGLITAZONE 15 MG TAB PO SCH (07:10)
[2018-08-24 07:11] VITALS: BP 112/63; PULSE 64; TEMP 97.6
[2018-08-24 07:15] LABS: Glucose,Whole Blood 98 mg/dL (75-99)
[2018-08-24 07:39] LABS: Anisocytosis Slight; Basophils % (A) 0 %; Eosinophils # (A) 0.1 k/uL (0-0.7); Eosinophils % (A) 3 %; HCT 26.9 % (39.0-53.0); HGB 8.5 gm/dL (13.0-17.5); Lymphocytes # (A) 1.8 k/uL (1.0-4.8); Lymphocytes % (A) 33 %; MCH 31.1 pg (25.0-35.0); MCHC 31.6 g/dL (31.0-37.0); MCV 98.4 fL (80.0-100.0); Macrocytosis Slight; Monocytes # (A) 0.5 k/uL (0-1.0); Monocytes % (A) 9 %; Neutrophils % (A) 53 %; Platelet Count 203 k/uL (150-450); RBC 2.73 m/uL (4.30-5.90); RDW 16.5 % (11.5-15.5); WBC 5.5 k/uL (3.8-10.6)
[2018-08-24 08:22] LABS: Glucose,Whole Blood 353 mg/dL (75-99)
[2018-08-24 08:22] LABS: Glucose,Whole Blood 350 mg/dL (75-99)
[2018-08-24 09:19] LABS: Anisocytosis Slight; HCT 27.5 % (39.0-53.0); HGB 8.9 gm/dL (13.0-17.5); Hypochromasia Slight; MCH 31.7 pg (25.0-35.0); MCHC 32.5 g/dL (31.0-37.0); MCV 97.4 fL (80.0-100.0); Macrocytosis Slight; Platelet Count 213 k/uL (150-450); RBC 2.82 m/uL (4.30-5.90); RDW 17.4 % (11.5-15.5)
--- NOTE | 2018-08-24 10:02 | P.DS ---
Providers Date of admission: 08/21/18 10:13 Expected date of discharge: 08/24/18 Attending physician: Shiv Crenshaw MD Consults: 08/21/18 12:44 Consult Physician Routine Consulting Provider: Alexandria Arellano Consult Reason/Comments: ICU management Do you want consulting provider notified?: Yes Primary care physician: Stated None Hospital Course: 73-year-old male with PMH of diabetes mellitus, hypertension, coronary artery disease status post AV valve replacement CABG presents to the ED for hematochezia. Patient reports about 6 episode of bright red blood per rectum since yesterday. Symptoms persisted, prompting the patient to come to the ED. Patient reports a colonoscopy a few years back that was within normal limits. He denies any headache, lower extremity edema, nausea, vomiting, chest pain, shortness of breath, palpitations, changes in urination, dizziness, numbness/weakness/tingling of the extremities. He denies any abdominal pain. In the ED, vital signs are stable. CBC showed a hemoglobin of 10.3 which trended down to 8.9. CMP showed a BUN of 29. Patient is admitted for lower GI bleed, GI is consulted. His lower GI bleed was likely secondary to hemorrhoids or diverticular bleed given his presentation. His hemoglobin trended from 10.3-8.9-9.5-8.8-7.0 when he was transfused 1 unit PRBC. After that, his hemoglobin went from 7.9 today 0.4-7.1-7.8-6.8 when he was transfused another unit of PRBC. His hemoglobin trended up to 9.2 and then 8.5 and 8.9 on discharge. Patient underwent EGD which on was unrevealing for the source of bleed. Colonoscopy showed palacios diverticulosis and large internal hemorrhoids with no obvious bleed. He was given Protonix 40 mg IV twice a day. He was hydrated with normal saline 80 mL per hour. His diet was advanced with no issues. Otherwise, his home medications was resumed for diabetes mellitus, hypertension and CAD. Patient was seen and examined prior to discharge. No acute events overnight. Patient reports 2 normal bowel movements this morning. He denies any chest pain, shortness breath or palpitations. States that he has a flight to [place] this morning. General: [non toxic], [no distress], [appears at stated age] Derm: [warm], [dry] Head: [atraumatic], [normocephalic], [symmetric] Eyes: [EOMI], [no lid lag], [anicteric sclera] Mouth: [no lip lesion], [mucus membranes moist] Cardiovascular: [S1S2 reg], [no murmur], [positive DP pulse bilateral], Lungs: [CTA bilateral], [no rhonchi, no rales] , [no accessory muscle use] Abdominal: [soft], [ nontender to palpation], [no guarding], [no appreciable organomegaly] Ext: [no gross muscle atrophy], [no edema], [no contractures] Neuro: [no focal neuro deficits] Psych: [Alert], [oriented], [appropriate affect] Assessment and Plan Lower GI bleed likely secondary to hemorrhoids or diverticular bleed given presentation Diabetes mellitus Hypertension CAD post CABG Hemoglobin from 10.3-8.9-9.5-8.8-7.0-7.9-8.4-7.1-7.8-6.8-9.2-8.5-8.9. Stool for occult blood positive. EGD unrevealing for source of bleed. Colonoscopy shows pandiverticulosis and large internal hemorrhoids. Plans: Protonix 40 g IV twice a day. H&H every 8 hours. Continue normal saline 80 mL per hour. Restart diet. Zofran as needed for nausea and vomiting. Follow GI recommendations. [id number] glucose 98. Plans: Insulin sliding scale. Regular Accu-Cheks. Hypoglycemic precautions. BP 112/63. Plans: Continue amlodipine, lisinopril and metoprolol. Monitor vitals, adjust medications as necessary. Stable. Plans: Continue Lipitor. Hold aspirin until okay with GI. Patient has had upper and lower endoscopy that shows large internal hemorrhoids and pandiverticulosis. No source of bleeding identified. Hemoglobin stable. Will DC with close follow-up with PCP. Pertinent Studies: Colonoscopy, EGD, abdominal x-ray Procedures: Colonoscopy, EGD Patient Condition at Discharge: Stable Plan - Discharge Summary Discharge Rx Participant: No New Discharge Prescriptions: Continue Tiotropium Bozman [Spiriva Respimat] 1 puff INHALATION RT-HS Gabapentin [Neurontin] 100 mg PO HS Aspirin EC [Ecotrin Low Dose] 81 mg PO HS ALPRAZolam [Xanax] 1 mg PO HS amLODIPine [Norvasc] 5 mg PO HS Melatonin 3 mg PO HS Lisinopril 40 mg PO HS Atorvastatin [Lipitor] 20 mg PO HS Omeprazole [PriLOSEC] 20 mg PO AC-BRKFST Metoprolol Succinate (ER) [Toprol XL] 50 mg PO DAILY Ferrous Sulfate [Iron (65 MG Elemental)] 325 mg PO DAILY Cyanocobalamin (Vitamin B-12) [Vitamin B-12] 1,000 mcg PO DAILY Ascorbic Acid [Vitamin C] 1,000 mg PO TID metFORMIN HCL 1,000 mg PO BID glipiZIDE [Glucotrol] 2.5 mg PO AC-BID Pioglitazone HCl [Actos] 15 mg PO DAILY Discharge Medication List ALPRAZolam [Xanax] 1 mg PO HS 08/19/18 [History] Ascorbic Acid [Vitamin C] 1,000 mg PO TID 08/19/18 [History] Aspirin EC [Ecotrin Low Dose] 81 mg PO HS 08/19/18 [History] Atorvastatin [Lipitor] 20 mg PO HS 08/19/18 [History] Cyanocobalamin (Vitamin B-12) [Vitamin B-12] 1,000 mcg PO DAILY 08/19/18 [History] Ferrous Sulfate [Iron (65 MG Elemental)] 325 mg PO DAILY 08/19/18 [History] Gabapentin [Neurontin] 100 mg PO HS 08/19/18 [History] Lisinopril 40 mg PO HS 08/19/18 [History] Melatonin 3 mg PO HS 08/19/18 [History] Metoprolol Succinate (ER) [Toprol XL] 50 mg PO DAILY 08/19/18 [History] Omeprazole [PriLOSEC] 20 mg PO AC-BRKFST 08/19/18 [History] Pioglitazone HCl [Actos] 15 mg PO DAILY 08/19/18 [History] Tiotropium Bozman [Spiriva Respimat] 1 puff INHALATION RT-HS 08/19/18 [History] amLODIPine [Norvasc] 5 mg PO HS 08/19/18 [History] glipiZIDE [Glucotrol] 2.5 mg PO AC-BID 08/19/18 [History] metFORMIN HCL 1,000 mg PO BID 08/19/18 [History] Follow up Appointment(s)/Referral(s): None,Stated [Primary Care Provider] - 1-2 days Patient Instructions/Handouts: Diverticulitis (DC), Diverticulosis (DC), Diverticulitis Diet (DC) Activity/Diet/Wound Care/Special Instructions: Diet: High-fiber Follow-up PCP within 1-2 days of discharge. Please repeat a CBC within 2 days of discharge. Discharge Disposition: HOME SELF-CARE
== END 2018-08-24 10:38 | disposition home or self-care (01) | DRG 393 ==
LOC: EC 09:29 → 4MS4W 13:19 → OBSVTOIN 08-21 10:13 → 2SICU 08-21 10:59 → 4MS4W 08-23 16:44
PROVIDERS: ADMIT Family Medicine; ATTEND Family Medicine
PROC: 0DB78ZX Excision of Stomach, Pylorus, Via Natural or Artificial Opening Endoscopic, Diagnostic (ICD-10-PCS; principal; 2018-08-20 08:50)
PROC: 30233N1 Transfusion of Nonautologous Red Blood Cells into Peripheral Vein, Percutaneous Approach (ICD-10-PCS; 2018-08-21)
PROC: 0DJD8ZZ Inspection of Lower Intestinal Tract, Via Natural or Artificial Opening Endoscopic (ICD-10-PCS; 2018-08-22)
DX: K64.8 Other hemorrhoids (principal); K57.31 Diverticulosis of large intestine without perforation or abscess with bleeding; D62 Acute posthemorrhagic anemia; E11.9 Type 2 diabetes mellitus without complications; E78.00 Pure hypercholesterolemia, unspecified; E78.5 Hyperlipidemia, unspecified; I10 Essential (primary) hypertension; I25.10 Atherosclerotic heart disease of native coronary artery without angina pectoris; K21.9 Gastro-esophageal reflux disease without esophagitis; K29.70 Gastritis, unspecified, without bleeding; K44.9 Diaphragmatic hernia without obstruction or gangrene; R42 Dizziness and giddiness; M19.90 Unspecified osteoarthritis, unspecified site; Z79.84 Long term (current) use of oral hypoglycemic drugs; Z79.899 Other long term (current) drug therapy; Z79.82 Long term (current) use of aspirin; Z96.652 Presence of left artificial knee joint; Z95.2 Presence of prosthetic heart valve; Z95.1 Presence of aortocoronary bypass graft; Z87.891 Personal history of nicotine dependence; Z87.01 Personal history of pneumonia (recurrent); Z80.1 Family history of malignant neoplasm of trachea, bronchus and lung; Z82.49 Family history of ischemic heart disease and other diseases of the circulatory system
CPT/HCPCS: 36415; 43239; 45378; 74019; 80048; 80053; 82272; 82550; 83735; 84100; 84484; 85025; 85027; 85610; 85730; 86850; 86900; 86901; 86920; 88305; 99285